=== PATIENT | male | born 1935 | race Caucasian/White ===

== ENCOUNTER 2019-07-09 10:22 | Inpatient (IN) | payer MEDICARE, OTHER, SELFPAY ==
[2019-06-26 10:00] VITALS: BMI 25.8
[2019-07-09] VITALS (12 sets, daily range): BP systolic 88–161; BP diastolic 53–83; PULSE 53–80; RESP 12–20; TEMP 36.2–36.6; O2SAT 92–99; BMI 25.8
--- NOTE | 2019-07-09 | DI.RAD.S_ITS ---
PROCEDURE: XR LUMBAR SPINE 2-3V INDICATIONS: L5-S1 TLIF TECHNIQUE: 2 views of the lumbar spine were acquired. COMPARISON: None. FINDINGS: Bones: Intraoperative images are demonstrate postsurgical changes compatible with L5-S1 TLIF. Orthopedic hardware is intact. There is normal alignment of the fused vertebral bodies. Soft tissues: Overlying bowel gas pattern is normal. No suspicious soft tissue calcifications. IMPRESSION: Expected postsurgical change for L5-S1 TLIF. Dictated by: Lubna Schmidt MD, PhD on 07/09/2019 at 15:06 Approved by: Lubna Schmidt MD, PhD on 07/09/2019 at 15:07
[2019-07-09] MEDS: LACTATED RINGERS 1,000 ML 42 ML IV (11:30)
--- NOTE | 2019-07-09 12:03 | PM.PREOP ---
Pre-operative Note Interval Note History & Physical reviewed/Exam performed by Physician: Yes Changes to H&P: No
[2019-07-09] MEDS: CEFAZOLIN 2 GM/100 ML FROZ.PIGGY IV (12:50)
--- NOTE | 2019-07-09 13:23 | SUR.OPER ---
Prone on spine table, head in foam head support, padded chest and pelvic supports, gel pad at knees, lower legs supported by pillows; nipples, genitalia and toes free of pressure, arms secured on foam padded arm boards at <90 degrees abduction. Tape over blanket at thigh secured to table.
[2019-07-09] MEDS: BUPIVACAINE 0.25% W/ EPI 30 ML VIAL INJ (13:29)
[2019-07-09] MEDS: BUPIVACAINE LIPOSOME 266 MG/20 ML VIAL INJ (13:29)
[2019-07-09] MEDS: ACETAMINOPHEN IV 1,000 MG/100 ML VIAL 400 MG IV (15:00)
--- NOTE | 2019-07-09 15:14 | P.OP_ITS ---
Operative Date/Time/Diagnoses Date of procedure: 07/09/19 Time of procedure: 12:14 Pre-op diagnosis: 1. L5-S1 spinal stenosis 2. L5-S1 spondylosis with radiculopathy Post-op diagnosis: same Procedure & Clinicians Procedure: 1. L5-S1 Postero-lateral and posterior interbody fusion 2. L5-S1 interbody cage placement. 3. L5-S1 decompressive laminectomy with bilateral facetecomies 4. L5-S1 Posterior non-segmental instrumentation 5. [place] of bone marrow from iliac crest 6. Utilization of microsurgical technique and operating microscope Same procedure as scheduled: Yes Indications: Patient has been having chronic back pain and worsening lumbar radiculopathy. Patient failed multiple conservative management with worsening pain weakness and numbness in her lower extremity. Patient has been having difficulty performing activity of daily living. After discussing risks benefits of treatment options, patient elected proceed with surgery. Surgeon: Lydia Blair Flow Specialist: Ratna Andrade'Brien Click Yes if Unassisted: No Anesthesia Type: General Operative Notes Closure Type: primary Specimen(s): none sent Prosthetic devices, grafts, tissues, transplants, or devices: Globus revolve screws, Rise cage Estimated Blood Loss (mL): 50 Blood products transfused: none Procedure in detail: Patient was seen in the preoperative area. Risks and benefits of the surgery was discussed with the patient. Informed consent was obtained from the patient and placed in the chart. Surgical site was marked. Patient was taken to the operative room. General anesthesia was administered. Prophylactic antibiotic was given to the patient less than 30 min before the incision was made. Patient was placed into a prone position on the Bon table. Patient's back was then prepped and draped in the sterile fashion. Time- out was performed at this time. Using AP and lateral C-arm imaging the interval between L5-S1 was identified and marked on patient's back. A 2 inch incision 2 in from midline was made on the right side first. The fascia was incised in line with skin incision. Globus MARS retractors was placed inside the incision and docked onto the L5 lamina. Using microsurgical technique and operating microscope, a L5-S1 laminectomy and L5-S1 facetectomy was performed using a Kerrison rongeur. The disc space at L5- S1 was identified. And a total diskectomy was performed at L5-S1 level. The endplates were decorticated using a rasp and shaver. The total diskectomy and decortication was performed at L5-S1 level in order to to accomplish a L5-S1 fusion. The local bone from the laminectomy and facetectomy was saved for local bone grafting. After the total diskectomy and decortication was completed, Bio4 bone graft material was combined with local bone that was harvested earlier. At this time, a separate skin is incision was made over the iliac crest. A Jamshidi needle was inserted into the iliac crest through a separate skin incision. 5 cc of bone marrow aspiration was obtained through the separate skin incision using a Jamshidi needle from the iliac crest. The bone marrow aspiration was combined with local bone and the Bio4 bone grafting material. The bone grafting material was placed into the L5-S1 interbody space along with a expandable cage. The cage was expanded to its maximum height using the torque limiting screwdriver. At this time a mirror image incision was made on the left side. The fascia was incised in line with the skin incision. Globus MARS retractor was inserted and docked onto the L5-S1 posterolateral gutter. Using the power drill, posterior- lateral decortication was performed at L5-S1 level until bleeding cortical bone was identified. The remaining bone grafting material was placed into the L5-S1 posterior lateral gutter he order to accomplish posterolateral fusion at the L5- S1 level. Using the double C-arm technique, pedicle screws were placed into the L5-S1 pedicles bilaterally. This was done by placing the Jamshidi needle into the pedicles, then placing the guidewires over the Jamshidi needle, and finally placing the cannulated screws over the guidewires bilaterally. After the pedicle screws were placed, 2 titanium rods was locked into the heads of the pedicle screws using locking caps and torque limiting screwdriver. After all the hardware was placed, and confirmed with AP and lateral C-arm imaging, the wound was then irrigated with sterile normal saline and packed with Ray-Lisa gauze for 3 min to accomplish hemostasis. After the gauze was removed the deep fascia was closed with #1 Vicryl suture. The subcutaneous layer was closed with 2-0 Vicryl. The skin was closed with skin maxx. Patient tolerated the procedure well. There were no complications. Complications: none Post-operative Condition: stable Disposition: PACU Plan for aftercare: Admit to inpatient hospital
[2019-07-09] MEDS: hydrOXYzine 50 MG/ML INJ 25 MG IM (15:44)
--- NOTE | 2019-07-09 16:19 | SUR.PHASEI ---
Report given to micaela. pt states he is tolerating his pain at a level of 3-4. pt 's blood pressure and vital signs were stable. pt 's dressing also dry and intact.
[2019-07-09] MEDS: SODIUM CHLORIDE 0.9% 1,000 ML 100 ML IV (18:17)
--- NOTE | 2019-07-09 19:18 | PC.NURSE ---
Pt resting well rob this time. Lungs clear, SpO2 95% RA Dsg
--- NOTE | 2019-07-09 19:20 | PC.NURSE ---
Addendum entered by Lucy Guy R.N. 07/09/19 21:33: Pt resting at intervals this evening. Denies discomfort when asked. Dsg to back CDI IV continues as per orders. Stable post op course. Call light w/in reach, bed alarm on for pt safety. Continue w/plan of care. Original Note: Pt resting quietly at this time. Lungs clear, SpO2 95% 2L Dsg to surgical back CDI IV NS @ 100cc/hr infusing into the RFA via pump w/o incidence. Foot SCD in place. Call light w/in reach, bed alrm on for pt safety.
[2019-07-09] MEDS: PANTOPRAZOLE 20 MG TABLET PO (20:48)
[2019-07-09] MEDS: CEFAZOLIN 1 GM/50 ML FROZ.PIGGY IV (20:48)
[2019-07-09] MEDS: DOCUSATE 100 MG CAPSULE PO (20:48)
[2019-07-09] MEDS: ATENOLOL 25 MG TABLET PO (20:48)
[2019-07-09] MEDS: SENNOSIDES 8.6 MG TABLET 17.2 MG PO (20:48)
[2019-07-09] MEDS: FELODIPINE ER 2.5 MG TAB PO (20:54)
[2019-07-09] MEDS: TERAZOSIN 5 MG CAPSULE PO (20:54)
[2019-07-09] MEDS: HYDROCODONE/ACET 5/325 TABLET 2 TAB PO (22:03)
[2019-07-09] MEDS: HYDROMORPHONE 0.5 MG INJ IV (23:55)
[2019-07-09] MEDS: hydrOXYzine pamoate 25 MG CAPSULE PO (23:55)
[2019-07-10] VITALS (10 sets, daily range): BP systolic 98–145; BP diastolic 56–83; PULSE 62–91; RESP 13–16; TEMP 36.9–37.9; O2SAT 86–94
[2019-07-10] MEDS: HYDROCODONE/ACET 5/325 TABLET 2 TAB PO ×3 (02:23→09:55)
--- NOTE | 2019-07-10 04:25 | PC.NURSE ---
Addendum entered by Yumi Ferguson R.N. 07/10/19 05:26: Pt CMS is intact Original Note: Pt VSS, lung sounds clear. Pt in 6/10 pain at start of shift. Pt had to be medicated w/ 0.5mg dilaudid, and Q4 [place]. Pt's pain is more under control at 4/10. Pt had no urine output on evening shift and bladder scan was done on this shift >400. No orders were in the computer from Dr. Blair, for a bladder scan or straight cath as needed. 0230 called information resources director Dr. Azar, verbal order put in the computer for bladder scan as needed and straight cath. Pt had 500cc of urine output. Pt has lumbar dressing, clean/dry and intact with some shadow drainage. Pt has SCD's applied, IS encouraged, and call light is within reach.
[2019-07-10] MEDS: CEFAZOLIN 1 GM/50 ML FROZ.PIGGY IV (04:51)
[2019-07-10 06:12] LABS: Hematocrit 33.7 % (41-53)
--- NOTE | 2019-07-10 07:32 | PM.PNPO.1 ---
Subjective Subjective Date Patient Seen: 07/10/19 Time Patient Seen: 07:32 Interval history: Post op day 1 s/p L5-S1 TLIF with Dr. Blair. Overnight patient was bladder scanned and straight cath Exam Vital Signs (past 8 hours): - 07/10/19 00:20 07/10/19 06:28 Temperature 98.6 F 98.4 F Pulse Rate 62 69 Respiratory Rate 15 16 Blood Pressure 116/70 120/65 Pulse Oximetry 93 94 Oxygen Delivery Method Nasal Cannula Oxygen Flow Rate 2 Objective Labs Result Diagrams: 07/10/19 05:45 Labs: Laboratory Results - last 24 hr 07/10/19 05:45 Hgb 11.0 L Hct 33.7 L Assessment & Plan Post-op Postoperative Procedures: Procedures Operation Date: 07/09/19 12:15 Actual Procedures Side Surgeon p L5-S1 TLIF Not Applicable Lydia Blair MD Quality VTE Deep Vein Thrombosis/Pulmonary Embolism Present on Admission: No
--- NOTE | 2019-07-10 07:33 | PM.PNPO.1 ---
Subjective Subjective Date Patient Seen: 07/10/19 Time Patient Seen: 07:33 Interval history: Post op day 1 s/p TLIF with Dr. Blair. Overnight patient was bladder scanned (>400 ml) and straight cath (500ml). Patient denies voiding since. Patient complains of pain in lower back (5/10, non radiating). Taking dilaudid and norco for pain. Vistaril for muscle spasms. Patient hasn't ambulated. Patient denies fever, chill, nausea, vomiting, chest pain, shortness of breath, calf pain. Exam Vital Signs (past 8 hours): - 07/10/19 00:20 07/10/19 06:28 Temperature 98.6 F 98.4 F Pulse Rate 62 69 Respiratory Rate 15 16 Blood Pressure 116/70 120/65 Pulse Oximetry 93 94 Oxygen Delivery Method Nasal Cannula Oxygen Flow Rate 2 Narrative Exam Narrative: 83 year old male laying comfortably in bed, in no apparent distress. A&Ox3. SCDs in place. Dressing intact and in place with minor shadow drainage. Patient able to actively dorsiflex/plantar flex. Sensation to light touch grossly intact in lower extremities bilaterally. Dorsalis pedis 2+ b/l. Capillary refill <2 seconds bilaterally LE. Objective Labs Result Diagrams: 07/10/19 05:45 Labs: Laboratory Results - last 24 hr 07/10/19 05:45 Hgb 11.0 L Hct 33.7 L Assessment & Plan Post-op Postoperative Procedures: Procedures Operation Date: 07/09/19 12:15 Actual Procedures Side Surgeon p L5-S1 TLIF Not Applicable Lydia Blair MD Postoperative status: doing well Postoperative plan narrative: Continue current pain management, educated patient on keeping pain 5/10 or below. Ambulate with physical therapy today Monitor voiding Discharge likely tomorrow pending voiding and physical therapy clearance. Time Spent With Patient Time with patient: less than 15 minutes Quality VTE Deep Vein Thrombosis/Pulmonary Embolism Present on Admission: No
[2019-07-10] MEDS: hydrOXYzine pamoate 25 MG CAPSULE PO (08:05)
[2019-07-10] MEDS: ATORVASTATIN 10 MG TABLET PO (08:39)
[2019-07-10] MEDS: CHOLECALCIFEROL (VITAMIN D3) 1,000 UNIT TABLET 2000 UNIT PO (08:39)
[2019-07-10] MEDS: TERAZOSIN 5 MG CAPSULE PO ×3 (08:39→22:09)
[2019-07-10] MEDS: FLUoxetine 20 MG CAPSULE PO (08:39)
[2019-07-10] MEDS: ACETAMINOPHEN 325 MG TABLET 650 MG PO ×2 (08:40→19:05)
[2019-07-10] MEDS: PANTOPRAZOLE 20 MG TABLET PO ×2 (08:40→22:07)
[2019-07-10] MEDS: DOCUSATE 100 MG CAPSULE PO ×2 (08:40→22:07)
--- NOTE | 2019-07-10 09:30 | PT.IIE ---
Current Diagnoses Other spondylosis with radiculopathy, lumbosacral region (07/09/19) Spinal stenosis, lumbar region without neurogenic claudication (07/09/19) Other specified postprocedural states (07/09/19) Surgery Performed Operation Date: 07/09/19 12:15 Actual Procedures p L5-S1 TLIF(Not Applicable) - Lydia Blair MD Surgical History (Last Updated 06/26/19 @ 10:49 by Priyanka Chinchilla RN) H/O vasectomy (Acute) History of Nancie fundoplication (Acute ~1999) Hx of appendectomy (Acute ~1999) Hx of arthroscopy of left knee (Acute) Hx of blepharoplasty (Acute) Hx of fusion of cervical spine (Acute 07/27/17) Hx of hemorrhoidectomy (Acute ~1965) Hx of laminectomy (Acute 04/25/17) Hx of repair of right rotator cuff (Acute ~2003) S/P epidural steroid injection (Acute) Medical History (Last Updated 06/26/19 @ 10:49 by Priyanka Chinchilla RN) Arthritis (Acute) Mendoza's esophagus (Acute) BPH (benign prostatic hyperplasia) (Acute) CKD (chronic kidney disease), stage III (Acute) Color blind (Acute) DDD (degenerative disc disease) (Acute) Depression (Acute) Former smoker (Acute) GERD (gastroesophageal reflux disease) (Acute) Hemorrhoids (Acute) Herpes zoster (Acute) HLD (hyperlipidemia) (Acute) HTN (hypertension) (Acute) Hyperglycemia (Acute) Incomplete bladder emptying (Acute) Low back pain (Acute) 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 (Acute) Osteoarthritis (Acute) Spina bifida (Acute) TIA (transient ischemic attack) (Acute) [place] macroglobulinemia (Acute 05/24/19) Weakness of right lower extremity (Acute) Physical Therapy Inpatient Evaluation/Re-Eval M1 PT/OT-IP Prior Functional Status Start: 07/10/19 12:04 Freq: NEEDED Status: Active Protocol: Document 07/10/19 09:30 AB (Rec: 07/10/19 12:17 AB [id number]) Medical Review Prior Functional Status Medical History Reviewed Yes Communication able to make needs known Mobility and Gait pt stated that he is independent with all mobilities and ambulation without AD Social History Household Members spouse Living Arrangements House Number of Floors (Floors) One Floor Number of Stairs To Enter/Railing? 4 steps to enter with R rail ascending Home Environment Standard Height Toilet,Walk in Shower Home Equipment Front Wheel Walker,Grab Bars Near Toilet,Grab Bars In Shower Employment Status Retired M2 PT-IP Current Condition Start: 07/10/19 12:04 Freq: NEEDED Status: Active Protocol: Document 07/10/19 09:30 AB (Rec: 07/10/19 12:17 AB [id number]) Physical Therapy Current Condition Current Condition Evaluation Date 07/10/19 Treatment Diagnosis s/p L5S1 fusion/lami; difficulty in walking Onset Date 07/09/19 Precautions Lumbar Precautions Log Roll,No Twisting,Limit Bending,Lifting Restriction of 10 lbs,Gait Belt above Incisional Area Other Precautions Falls M3 PT-IP Subjective Start: 07/10/19 12:04 Freq: NEEDED Status: Active Protocol: Document 07/10/19 09:30 AB (Rec: 07/10/19 12:17 AB [id number]) Subjective Physical Therapy Visit Type Type Initial Evaluation Visit Start Time 09:30 Visit Stop Time 10:09 Total Visit Minutes 39 Number of [employer] MANAGER Visits 0 Physical Therapy Visit Comments Patient Comments pt agreeable to do PT Patient Goals to go home Therapy Pain Assessment Pain When Pain Assessed At Rest Pain Present Pain Present Pain Reported Location Back Intensity 6 Scale Used Numeric (1 - 10) Pain Management Techniques Apply Cold,Re-positioning, Timing of Activity with Medications M4 PT-IP Mobility and Gait Start: 07/10/19 12:04 Freq: NEEDED Status: Active Protocol: Document 07/10/19 09:30 AB (Rec: 07/10/19 12:17 AB [id number]) PT-Bed Mobility Assessment Rolling Type of Rolling Log Rolling Level of Assist Standby Assistance Supine to Sit Supine to Sit Standby Assistance Sit to Supine Sit to Supine Standby Assistance PT-Transfer Assessment Sit to and From Stand Sit to and from Stand Minimal Assistance,Moderate Assistance,1 Person Assistance ,Use of Upper Extremities Equipment Transfer Assistive Device Gait Belt,Front Wheeled Walker Orthotic/Prosthetic Devices or Brace: No Transfers Transfer Destination Chair Transfer Technique pt ambulated using FWW Transfer Ability Level of Assist Minimal Assistance,1 Person Assistance,Use of Upper Extremities Comments Mobility Comments attempted to use the toilet. pt ambulated from the bed to the toilet using FWW min A and cues. pt was able to maintain standing using FWW for support CGA. pt ambulated more after using the toilet. agreed to sit up on chair. positioned on the chair. call light and table placed within reach. Gait Assessment Gait Gait Assistance Required: Minimum Assistance Distance (Feet) 30 Able to Maintain Weight Bearing Status Yes During Gait Assistive Devices Assistive Device Gait Belt,Front Wheeled Walker Orthotic/Prosthetic Devices or Brace: No Gait Deviations General Gait Pattern Antalgic,Decreased Stride Length,Decreased Feet Clearance Factors Limiting Gait Function Factors Limiting Gait Function Decreased Activity Tolerance, Decreased Strength,Difficulty Following Directions,Limited Range of Motion,Pain,Poor Balance,Poor Safety Awareness, Respiratory Distress PT-Balance Assessment Sitting Balance and Reactions Static Sitting Balance Ability Good Dynamic Sitting Balance Ability Good Standing Balance and Reactions Static Standing Balance Ability Fair Dynamic Standing Balance Ability Fair Device Used FWW M5 PT-IP Objective Assessments Start: 07/10/19 12:04 Freq: NEEDED Status: Active Protocol: Document 07/10/19 09:30 AB (Rec: 07/10/19 12:17 [id number]) Orientation Orientation/Cognition Level of Alertness Alert Orientation Name,Age,Birthday,Place, Situation Gross Range of Motion Lower Extremity ROM Assessment Within Functional Limits Strength Lower Extremity Strength Assessment Left Impaired Comments Strength Comments LLE : 3+/5 Coordination Assessment Gross Coordination Gross Coordination WNL Sensation Assessment Sensation Gross Sensation WNL Muscle Tone Muscle Tone WNL Yes M6 PT-IP Treatment Start: 07/10/19 12:04 Freq: NEEDED Status: Active Protocol: Document 07/10/19 09:30 AB (Rec: 07/10/19 12:17 [id number]) Physical Therapy Treatment Education Education Provided Precautions,Weight Bearing Status,Post-Op Packet,Safety M7 PT-IP Assessment and Plan Start: 07/10/19 12:04 Freq: NEEDED Status: Active Protocol: Document 07/10/19 09:30 AB (Rec: 07/10/19 12:17 [id number]) PT Summary Assessment and Plan Potential Rehabilitation Potential Good Summary Impairments Pain,ROM,Strength,Balance,Bed Mobility,Transfers,Gait, Activity Tolerance Assessment Summary pt requiring min to mod with sit to stand and min A with ambulation using FWW, but will likely progress during hospital stay. pt plans to go home with spouse to assist him. caregiver training will be conducted when appropriate as well as stair climbing training. Goals Bed Mobility Goal Independent Transfer Goal Independent,Front Wheeled Walker Gait Goal Independent,Front Wheel Walker Gait Distance 200 Other Goals up/down 4 steps with R rail SBA Days to Meet Goals 5 Frequency of Treatment Frequency Of Treatment Twice a Day Treatment Plan Physical Therapy Treatment Plan Bed Mobility Training,Transfer Training,Gait Training, Therapeutic Exercise,Balance Retraining,Post Op Education, Discharge Planning,Hot or Cold Pack,Neuromuscular Re-ed, Coordination Retraining,Manual Therapy Other Recommendations and Next Treatment bed mobility, transfers, Focus ambulation, stair climbing Recommendations To Nursing Amount of Assist Needed 1 Person Assist Discharge Recommendations PT Discharge Recommendations Home with Assistance
--- NOTE | 2019-07-10 09:30 | PT.IIE ---
Current Diagnoses Other spondylosis with radiculopathy, lumbosacral region (07/09/19) Spinal stenosis, lumbar region without neurogenic claudication (07/09/19) Other specified postprocedural states (07/09/19) Surgery Performed Operation Date: 07/09/19 12:15 Actual Procedures p L5-S1 TLIF(Not Applicable) - Lydia Blair MD Surgical History (Last Updated 06/26/19 @ 10:49 by Priyanka Chinchilla RN) H/O vasectomy (Acute) History of Nancie fundoplication (Acute ~1999) Hx of appendectomy (Acute ~1999) Hx of arthroscopy of left knee (Acute) Hx of blepharoplasty (Acute) Hx of fusion of cervical spine (Acute 07/27/17) Hx of hemorrhoidectomy (Acute ~1965) Hx of laminectomy (Acute 04/25/17) Hx of repair of right rotator cuff (Acute ~2003) S/P epidural steroid injection (Acute) Medical History (Last Updated 06/26/19 @ 10:49 by Priyanka Chinchilla RN) Arthritis (Acute) Mendoza's esophagus (Acute) BPH (benign prostatic hyperplasia) (Acute) CKD (chronic kidney disease), stage III (Acute) Color blind (Acute) DDD (degenerative disc disease) (Acute) Depression (Acute) Former smoker (Acute) GERD (gastroesophageal reflux disease) (Acute) Hemorrhoids (Acute) Herpes zoster (Acute) HLD (hyperlipidemia) (Acute) HTN (hypertension) (Acute) Hyperglycemia (Acute) Incomplete bladder emptying (Acute) Low back pain (Acute) 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 (Acute) Osteoarthritis (Acute) Spina bifida (Acute) TIA (transient ischemic attack) (Acute) Waldenstrom macroglobulinemia (Acute 05/24/19) Weakness of right lower extremity (Acute) Physical Therapy Inpatient Evaluation/Re-Eval M1 PT/OT-IP Prior Functional Status Start: 07/10/19 12:04 Freq: NEEDED Status: Active Protocol: Document 07/10/19 09:30 AB (Rec: 07/10/19 12:17 AB [id number]) Medical Review Prior Functional Status Medical History Reviewed Yes Communication able to make needs known Mobility and Gait pt stated that he is independent with all mobilities and ambulation without AD Social History Household Members spouse Living Arrangements House Number of Floors (Floors) One Floor Number of Stairs To Enter/Railing? 4 steps to enter with R rail ascending Home Environment Standard Height Toilet,Walk in Shower Home Equipment Front Wheel Walker,Grab Bars Near Toilet,Grab Bars In Shower Employment Status Retired M2 PT-IP Current Condition Start: 07/10/19 12:04 Freq: NEEDED Status: Active Protocol: Document 07/10/19 09:30 AB (Rec: 07/10/19 12:17 AB [id number]) Physical Therapy Current Condition Current Condition Evaluation Date 07/10/19 Treatment Diagnosis s/p L5S1 fusion/lami; difficulty in walking Onset Date 07/09/19 Precautions Lumbar Precautions Log Roll,No Twisting,Limit Bending,Lifting Restriction of 10 lbs,Gait Belt above Incisional Area Other Precautions Falls M3 PT-IP Subjective Start: 07/10/19 12:04 Freq: NEEDED Status: Active Protocol: Document 07/10/19 09:30 AB (Rec: 07/10/19 12:17 AB [id number]) Subjective Physical Therapy Visit Type Type Initial Evaluation Visit Start Time 09:30 Visit Stop Time 10:09 Total Visit Minutes 39 Number of MARKETING COMPLIANCE MANAGER Visits 0 Physical Therapy Visit Comments Patient Comments pt agreeable to do PT Patient Goals to go home Therapy Pain Assessment Pain When Pain Assessed At Rest Pain Present Pain Present Pain Reported Location Back Intensity 6 Scale Used Numeric (1 - 10) Pain Management Techniques Apply Cold,Re-positioning, Timing of Activity with Medications M4 PT-IP Mobility and Gait Start: 07/10/19 12:04 Freq: NEEDED Status: Active Protocol: Document 07/10/19 09:30 AB (Rec: 07/10/19 12:17 AB [id number]) PT-Bed Mobility Assessment Rolling Type of Rolling Log Rolling Level of Assist Standby Assistance Supine to Sit Supine to Sit Standby Assistance Sit to Supine Sit to Supine Standby Assistance PT-Transfer Assessment Sit to and From Stand Sit to and from Stand Minimal Assistance,Moderate Assistance,1 Person Assistance ,Use of Upper Extremities Equipment Transfer Assistive Device Gait Belt,Front Wheeled Walker Orthotic/Prosthetic Devices or Brace: No Transfers Transfer Destination Chair Transfer Technique pt ambulated using FWW Transfer Ability Level of Assist Minimal Assistance,1 Person Assistance,Use of Upper Extremities Comments Mobility Comments attempted to use the toilet. pt ambulated from the bed to the toilet using FWW min A and cues. pt was able to maintain standing using FWW for support CGA. pt ambulated more after using the toilet. agreed to sit up on chair. positioned on the chair. call light and table placed within reach. Gait Assessment Gait Gait Assistance Required: Minimum Assistance Distance (Feet) 30 Able to Maintain Weight Bearing Status Yes During Gait Assistive Devices Assistive Device Gait Belt,Front Wheeled Walker Orthotic/Prosthetic Devices or Brace: No Gait Deviations General Gait Pattern Antalgic,Decreased Stride Length,Decreased Feet Clearance Factors Limiting Gait Function Factors Limiting Gait Function Decreased Activity Tolerance, Decreased Strength,Difficulty Following Directions,Limited Range of Motion,Pain,Poor Balance,Poor Safety Awareness, Respiratory Distress PT-Balance Assessment Sitting Balance and Reactions Static Sitting Balance Ability Good Dynamic Sitting Balance Ability Good Standing Balance and Reactions Static Standing Balance Ability Fair Dynamic Standing Balance Ability Fair Device Used FWW M5 PT-IP Objective Assessments Start: 07/10/19 12:04 Freq: NEEDED Status: Active Protocol: Document 07/10/19 09:30 AB (Rec: 07/10/19 12:17 [id number]) Orientation Orientation/Cognition Level of Alertness Alert Orientation Name,Age,Birthday,Place, Situation Gross Range of Motion Lower Extremity ROM Assessment Within Functional Limits Strength Lower Extremity Strength Assessment Left Impaired Comments Strength Comments LLE : 3+/5 Coordination Assessment Gross Coordination Gross Coordination WNL Sensation Assessment Sensation Gross Sensation WNL Muscle Tone Muscle Tone WNL Yes M6 PT-IP Treatment Start: 07/10/19 12:04 Freq: NEEDED Status: Active Protocol: Document 07/10/19 09:30 AB (Rec: 07/10/19 12:17 [id number]) Physical Therapy Treatment Education Education Provided Precautions,Weight Bearing Status,Post-Op Packet,Safety M7 PT-IP Assessment and Plan Start: 07/10/19 12:04 Freq: NEEDED Status: Active Protocol: Document 07/10/19 09:30 AB (Rec: 07/10/19 12:17 [id number]) PT Summary Assessment and Plan Potential Rehabilitation Potential Good Summary Impairments Pain,ROM,Strength,Balance,Bed Mobility,Transfers,Gait, Activity Tolerance Assessment Summary pt requiring min to mod with sit to stand and min A with ambulation using FWW, but will likely progress during hospital stay. pt plans to go home with spouse to assist him. caregiver training will be conducted when appropriate as well as stair climbing training. Goals Bed Mobility Goal Independent Transfer Goal Independent,Front Wheeled Walker Gait Goal Independent,Front Wheel Walker Gait Distance 200 Other Goals up/down 4 steps with bilateral rails SBA Days to Meet Goals 5 Frequency of Treatment Frequency Of Treatment Twice a Day Treatment Plan Physical Therapy Treatment Plan Bed Mobility Training,Transfer Training,Gait Training, Therapeutic Exercise,Balance Retraining,Post Op Education, Discharge Planning,Hot or Cold Pack,Neuromuscular Re-ed, Coordination Retraining,Manual Therapy Other Recommendations and Next Treatment bed mobility, transfers, Focus ambulation, stair climbing Recommendations To Nursing Amount of Assist Needed 1 Person Assist Discharge Recommendations PT Discharge Recommendations Home with Assistance
[2019-07-10] MEDS: HYDROMORPHONE 2 MG TABLET PO ×2 (13:55→19:05)
[2019-07-10] MEDS: DEXAMETHASONE 10 MG/ML VIAL IV (13:56)
--- NOTE | 2019-07-10 14:54 | PT.IPTN ---
Current Diagnoses Other spondylosis with radiculopathy, lumbosacral region (07/09/19) Spinal stenosis, lumbar region without neurogenic claudication (07/09/19) Other specified postprocedural states (07/09/19) Surgery Performed Operation Date: 07/09/19 12:15 Actual Procedures p L5-S1 TLIF(Not Applicable) - Lydia Blair MD Physical Therapy Treatment Note M2 PT-IP Current Condition Start: 07/10/19 12:04 Freq: NEEDED Status: Active Protocol: Document 07/10/19 09:30 AB (Rec: 07/10/19 12:17 AB [id number]) Physical Therapy Current Condition Current Condition Evaluation Date 07/10/19 Treatment Diagnosis s/p L5S1 fusion/lami; difficulty in walking Onset Date 07/09/19 Precautions Lumbar Precautions Log Roll,No Twisting,Limit Bending,Lifting Restriction of 10 lbs,Gait Belt above Incisional Area Other Precautions Falls M3 PT-IP Subjective Start: 07/10/19 12:04 Freq: NEEDED Status: Active Protocol: Document 07/10/19 14:54 AB (Rec: 07/10/19 17:46 AB [id number]) Subjective Physical Therapy Visit Type Type Treatment Note Visit Start Time 14:54 Visit Stop Time 15:20 Total Visit Minutes 26 Number of VASCULAR ULTRASOUND TECHNOLOGIST Visits 0 Physical Therapy Visit Comments Patient Comments pt agreeable to do PT Therapy Pain Assessment Pain When Pain Assessed At Rest Pain Present Pain Present Pain Reported Location Back Intensity 3 Scale Used Numeric (1 - 10) Pain Management Techniques Re-positioning,Timing of Activity with Medications M4 PT-IP Mobility and Gait Start: 07/10/19 12:04 Freq: NEEDED Status: Active Protocol: Document 07/10/19 14:54 AB (Rec: 07/10/19 17:46 AB [id number]) PT-Bed Mobility Assessment Rolling Type of Rolling Log Rolling Level of Assist Standby Assistance Supine to Sit Supine to Sit Standby Assistance PT-Transfer Assessment Sit to and From Stand Sit to and from Stand Contact Guard Assistance, Minimal Assistance,1 Person Assistance,Use of Upper Extremities Equipment Transfer Assistive Device Gait Belt,Front Wheeled Walker Orthotic/Prosthetic Devices or Brace: No Transfers Transfer Destination Chair Transfer Technique Stand Step Pivot Transfer Ability Level of Assist Contact Guard Assistance, Minimal Assistance,1 Person Assistance,Use of Upper Extremities Comments Mobility Comments pt completed supine to sit SBA and cues. ambulated in room x 2 reps. pt at first wanted to go back to bed but OT came in and agreed to sit up on chair. completed stand step transfer using FWW CGA to min A and cues. OT took over Gait Assessment Gait Gait Assistance Required: Contact Guard Assist,Minimum Assistance Distance (Feet) 35 Able to Maintain Weight Bearing Status Yes During Gait Assistive Devices Assistive Device Gait Belt,Front Wheeled Walker Gait Deviations General Gait Pattern Antalgic,Decreased Stride Length,Decreased Feet Clearance Factors Limiting Gait Function Factors Limiting Gait Function Decreased Activity Tolerance, Decreased Strength,Limited Range of Motion,Pain,Poor Balance,Poor Safety Awareness, Respiratory Distress Comments Gait Comments pt ambulated in room ~ 35 ft CGA to min A using FWW. pt with slight L knee bent during weight bearing and has increase UE weight bearing through FWW. O2 sat checked after walking and is at 74-77% . pt's fingers are cold. got portable pulse ox and reading at 77%. informed nurse and nurse provided O2 for pt. O2 sat increased to 90%. pt without any symptoms/SOB. O2 sat increased to 93% after a few minutes of rest. pt agreed to walk again and completed ~ 35 ft CGA to min A using FWW. M5 PT-IP Objective Assessments Start: 07/10/19 12:04 Freq: NEEDED Status: Active Protocol: Document 07/10/19 09:30 AB (Rec: 07/10/19 12:17 AB [id number]) Orientation Orientation/Cognition Level of Alertness Alert Orientation Name,Age,Birthday,Place, Situation Gross Range of Motion Lower Extremity ROM Assessment Within Functional Limits Strength Lower Extremity Strength Assessment Left Impaired Comments Strength Comments LLE : 3+/5 Coordination Assessment Gross Coordination Gross Coordination WNL Sensation Assessment Sensation Gross Sensation WNL Muscle Tone Muscle Tone WNL Yes M6 PT-IP Treatment Start: 07/10/19 12:04 Freq: NEEDED Status: Active Protocol: Document 07/10/19 14:54 AB (Rec: 07/10/19 17:46 AB [id number]) Physical Therapy Treatment Education Education Provided Precautions,Safety M7 PT-IP Assessment and Plan Start: 07/10/19 12:04 Freq: NEEDED Status: Active Protocol: Document 07/10/19 14:54 AB (Rec: 07/10/19 17:46 AB [id number]) PT Summary Assessment and Plan Potential Rehabilitation Potential Good Summary Impairments Pain,ROM,Strength,Balance, Cognition,Bed Mobility, Transfers,Gait,Activity Tolerance Progress Towards Goals Slow Progress due to Pain,Slow Progress due to Activity Tolerance Assessment Summary pt requiring min A with mobility and requires cues for techniques and safety. pt plans to go home and spouse to assist him. d/c plan depending if spouse will be able to assist pt and also if pt will be able to complete stair climbing safety as pt has 4 steps to enter the house with 1 rail. will continue to monitor progress. will conduct caregiver training when appropriate. Goals Bed Mobility Goal Independent Transfer Goal Independent,Front Wheeled Walker Gait Goal Independent,Front Wheel Walker Gait Distance 200 Other Goals up/down 4 steps with R rail SBA Days to Meet Goals 5 Frequency of Treatment Frequency Of Treatment Twice a Day Treatment Plan Physical Therapy Treatment Plan Bed Mobility Training,Transfer Training,Gait Training, Therapeutic Exercise,Balance Retraining,Post Op Education, Discharge Planning,Hot or Cold Pack,Neuromuscular Re-ed, Coordination Retraining,Manual Therapy Other Recommendations and Next Treatment bed mobility, transfers, Focus ambulation, stair climbing Recommendations To Nursing Amount of Assist Needed 1 Person Assist Discharge Recommendations PT Discharge Recommendations Home with Assistance
--- NOTE | 2019-07-10 15:06 | CM.DANOTE ---
DCP/Assessment: Reviewed chart. Patient is a 83yr old male admitted [facility] surgery performed on 07-09-19 raman Blair. PCP listed is Dr. Hart. [facility] is 1)Medicare [facility] Met with patient this AM explained CM/SW role. Patient alert and oriented at time of visit. Patient plans to d/c home when medically stable. Therapy evaluation pending. Notified patient that CM team would continue to follow if needs were to arise. P: Anticipate home when medically stable. CM team to follow up after therapy if needed. DARLING Polanco Discharge Planning/Care Management Advanced directive, confirm from FAMILY Start: 07/09/19 18:32 Freq: Q24H Status: Active Protocol: Document 07/09/19 18:32 KMD (Rec: 07/09/19 18:48 KMD [id number]) Advance Directive, confirm on record Time 18:48 Person contacted Patient Copy received No CM Discharge Assessment Start: 07/10/19 14:49 Freq: Status: Active Protocol: Document 07/10/19 14:55 KJS (Rec: 07/10/19 15:06 KJS [id number]) Discharge Planning Assessment Assigned Sock Liner DARLING Polanco Contact Information Gaby Barrett (spouse) [phone] Advance Directives? Yes Advance Directives on File No History Provided By Patient,Medical Record Prior Living Arrangements House Household Members spouse Type of transporation used prior to Drives own vehicle admit Independent with ADL's Yes Is patient alert and oriented? Yes Caregiver for Another No DME Already Rented / Owned FWW / Walker Barriers to Discharge No Comment Patient is POD#1 anticipates going home when medically stable. Therapy evaluations pending. Discharge Plan Home Transportation Arrangement Family to provide transport Whiteboard Updated in Patient Room with Yes name and ext. # of Sock Liner Review Status In Process Next Review Type Continued Stay Review Pre-Anesthesia Assessment Start: 06/26/19 09:59 Freq: Status: Active Protocol: Document 06/26/19 10:00 CAB (Rec: 06/26/19 10:59 CAB [id number]) Pre-Anesthesia Assessment Diagnostic Results BMP/CMP,CBC,EKG,Urinalysis Comment Outside labs/EKG Primary Care Provider Emely Hart Medical Clearance Received Yes Seen Specialist in Last 12 Months Yes Specialist Seen Oncologist,Orthopedist Comment PCP pre-op clearance 05/24/19 scanned to record Height 167.64 cm Weight 72.575 kg Body Mass Index (BMI) 25.8 Hearing Ability Hard of Hearing,Use of Hearing Aid Visual Impairment No Limitations Visual Assist Glasses Dentition Type Teeth, Natural Present Barriers to Learning None Other Aids No Comment Does not wear hearing aids regularly Hx Anesthesia Reactions No Hx Family Anesthesia Reaction No Hx Malignant Hyperthermia No Hx Blood Transfusions No Anesthesia Review Requested No alcohol intake current alcohol intake frequency 0-2 drinks per day Smoking Status Former smoker how long ago did patient quit smoking Quit Pain Present Pain Reported Musculoskeletal Symptoms Abnormal Gait,Back Pain, Difficulty Walking,Joint Pain, Muscle Weakness,Numbness, Radiating Pain into Limb History of Falling (Recent or History of No ) Patient is completely paralyzed or No completely immobile Mental Status Oriented to own ability Is patient on oxygen? No Does patient have WHALEN/SOB No Hx Sleep Apnea No Currently Taking a Beta Neymar Yes Can You Climb a Flight of Stairs Without Yes SOB Hx Chest Pain No Hx SOB No Hx Syncope or Dizziness No Cardiac Testing Yes: Carotid US 01/02/19 scanned to record Hx Pacemaker/ICD No Pacemaker Rep Required? No Diet Type At Home Regular dysphagia No Genitourinary Symptoms Change in Urinary Stream Bladder Pattern Nocturia,Retention Urinary Catheter Present No Hx Urinary Self Catheterization No Diabetes No Hx Drug Resistant Organism No Presence of External or Internal Medical Yes Devices Have you traveled outside the [facility] States in the last 30 days? Marital Status Lives With spouse Prior Living Arrangements House Number of Floors (Floors) One Floor Support System Spouse Does the Patient Have Assistance After Yes Surgery Patient Discharge Plan Description Return Home Comment Pt advised 1-2 night length of stay per surgeon Feels Safe in Current Environment Yes Been Physically Hurt or Threatened By a No Person in Current Environment Do you have thoughts of harming yourself None or others? Are you currently considering suicide? No Do you have a plan to hurt yourself or No Plan others? Do You Have Any Spiritual Beliefs That No May Affect Your HC Choices? Do You Have Any Cultural Practices That No May Affect Your HC Choices? Who Can We Speak to About Patient's Care Family, friends Identifying Code for Release of Patient Declines to issue Information Health Care Proxy/Next of Kin Dorene Griffin () Health Care Proxy Emergency Contact Name Dorene Griffin () Emergency Contact Advance Directives? Yes Advance Directives on File No Requested Patient Bring Advanced Yes Directives DOS Power of Clay Dry Press Helper Yes Power of Clay Dry Press Helper Name Dorene Griffin () Power of Clay Dry Press Helper PAC Instructions Durable medical equipment, Medications to take/avoid, Nasal antibiotic,No ETOH/ petroleum product on skin DOS, NPO,Pre-surgical wash,Sturdy shoes/comfortable clothes,Do not bring valuables and remove jewelry
--- NOTE | 2019-07-10 16:54 | OT.IP.EVAL ---
Current Diagnoses Other spondylosis with radiculopathy, lumbosacral region (07/09/19) Spinal stenosis, lumbar region without neurogenic claudication (07/09/19) Other specified postprocedural states (07/09/19) Surgery Performed Operation Date: 07/09/19 12:15 Actual Procedures p L5-S1 TLIF(Not Applicable) - Lydia Blair MD Past Medical History (Last Updated 06/26/19 @ 10:49 by Priyanka Chinchilla, RN) Arthritis (Acute) Mendoza's esophagus (Acute) BPH (benign prostatic hyperplasia) (Acute) CKD (chronic kidney disease), stage III (Acute) Color blind (Acute) DDD (degenerative disc disease) (Acute) Depression (Acute) Former smoker (Acute) GERD (gastroesophageal reflux disease) (Acute) Hemorrhoids (Acute) Herpes zoster (Acute) HLD (hyperlipidemia) (Acute) HTN (hypertension) (Acute) Hyperglycemia (Acute) Incomplete bladder emptying (Acute) Low back pain (Acute) 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 (Acute) Osteoarthritis (Acute) Spina bifida (Acute) TIA (transient ischemic attack) (Acute) Waldenstrom macroglobulinemia (Acute 05/24/19) Weakness of right lower extremity (Acute) Surgical History (Last Updated 06/26/19 @ 10:49 by Priyanka Chinchilla, DEANDRA) H/O vasectomy (Acute) History of Nancie fundoplication (Acute ~1999) Hx of appendectomy (Acute ~1999) Hx of arthroscopy of left knee (Acute) Hx of blepharoplasty (Acute) Hx of fusion of cervical spine (Acute 07/27/17) Hx of hemorrhoidectomy (Acute ~1965) Hx of laminectomy (Acute 04/25/17) Hx of repair of right rotator cuff (Acute ~2003) S/P epidural steroid injection (Acute) Occupational Therapy Inpatient Evaluation/Re-Eval M1 PT/OT-IP Prior Functional Status Start: 07/10/19 16:39 Freq: NEEDED Status: Active Protocol: Document 07/10/19 16:40 [facility] (Rec: 07/10/19 16:54 [facility] [id number]) Medical Review Prior Functional Status Medical History Reviewed Yes Communication able to make needs known Mobility and Gait pt stated that he is independent with all mobilities and ambulation without AD Activities of Daily Living and IADL's Pt states able to do all ADl's and IADl needs prior. Social History Household Members spouse Living Arrangements House Number of Stairs To Enter/Railing? 4 steps to enter with R rail ascending Home Environment Standard Height Toilet,Walk in Shower Home Equipment Front Wheel Walker,Grab Bars Near Toilet,Grab Bars In Shower Employment Status Retired M2 OT-IP Current Condition Start: 07/10/19 16:39 Freq: Status: Active Protocol: Document 07/10/19 16:40 [facility] (Rec: 07/10/19 16:54 [facility] [id number]) Occupational Therapy Current Condition Current Condition Evaluation Date 07/10/19 Treatment Diagnosis S/P L5-S1 TLIF Diagnosis Onset Date 07/10/19 Post Operative Precautions Lumbar Precautions Log Roll,No Twisting,Limit Bending,Lifting Restriction of 10 lbs,Gait Belt above Incisional Area Weight Bearing Status Weight Bearing Status Weight Bear as Tolerated M3 OT- IP Subjective and Pain Start: 07/10/19 16:39 Freq: Status: Active Protocol: Document 07/10/19 16:40 [facility] (Rec: 07/10/19 16:54 [facility] [id number]) OT- Subjective Occupational Therapy Visit Type Type Initial Evaluation Visit Start Time 15:10 Visit Stop Time 15:55 Total Visit Minutes 45 Occupational Therapy Visit Comments Patient Comments Pt finishing up with PT, agreed to work with OT for eval. Patient/Caregiver Goals To go home when stable. OT Pain Assessment Pain When Pain Assessed At Rest Pain Present Pain Present Denied Pain M4 OT- IP ADL's Start: 07/10/19 16:39 Freq: Status: Active Protocol: Document 07/10/19 16:40 [facility] (Rec: 07/10/19 16:54 [facility] [id number]) OT ADL-Grooming General Evaluation Grooming Ability Standby Assistance Areas Needing Assistance Retrieving/Set-up of Grooming Items Comments OT Grooming Comments SBA while standing at sink for grooming needs. OT ADL-Oral Care General Eval Oral Care Ability Independent OT ADL-Dressing General Eval Lower Body Dressing Ability Maximum Assistance Comments OT Dressing Comments Educated and tried use of sock aid and motorboat mechanic inboard/outboard for socks. OT ADL-Toileting Comments OT Toileting Comments Pt able to simulate having to wipe on the toilet as not having to go and able to safely lean to the side and reach underneath with good safety for back precautions. OT ADL-Bathing Comments OT Bathing Comments Recommended having a shower chair for showers. M5 OT- IP IADL's Start: 07/10/19 16:39 Freq: Status: Active Protocol: Document 07/10/19 16:40 [facility] (Rec: 07/10/19 16:54 [facility] [id number]) OT-Instrumental Activities of Daily Living Money Management Money Management Caregiver Provides Assistance M6 OT- IP Functional Cognition Start: 07/10/19 16:39 Freq: Status: Active Protocol: Document 07/10/19 16:40 [facility] (Rec: 07/10/19 16:54 [facility] [email or web address]) Cognitive Factors Limiting Selfcare Function Cognitive Ability Level of Alertness Alert Patient Orientation Name,Place,Situation Attention Span Ability Capable of Focused Attention, Capable of Sustained Attention Ability to Follow Commands Able to Follow One Step Commands Memory Description Short Term Impaired Safety Awareness Decreased Ability to Apply Precautions,Underestimates Need for Assistance Cognitive Comments Cognitive Assessment Comments Pt not able to recall al back precautions and needs initially. Pt able to follow simple commands. Pt states feel a bit groggy due to pain medications. 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 M7 OT- IP Mobility and Balance Start: 07/10/19 16:39 Freq: Status: Active Protocol: Document 07/10/19 16:40 [facility] (Rec: 07/10/19 16:54 [facility] [email or web address]) OT- Bed Mobility Assessment Sit to Supine Sit to Supine Assist Standby Assistance OT-Transfer Assessment Sit to and From Stand Sit to and from Stand Contact Guard Assistance Transfers Transfer Ability Contact Guard Assistance Technique Transfer Destination Bed,Chair,Toilet Transfer Technique Stand Step Pivot Devices Transfer Assistive Devices Gait Belt,Front Wheeled Walker Comments Mobility Comments Pt needing cues for safety to straighten legs out all the way before trying to grab the FWW. CGA for safey from sit to stand. OT- Gait Assessment Gait Gait Assistance Required: Contact Guard Assist OT- Balance Assessment Sitting Balance and Reactions Static Sitting Balance Ability Normal Dynamic Sitting Balance Ability Good Standing Balance and Reactions Static Standing Balance Ability Fair M8 OT- IP Objective Assessments Start: 07/10/19 16:39 Freq: Status: Active Protocol: Document 07/10/19 16:40 [facility] (Rec: 07/10/19 16:54 [facility] [email or web address]) OT Gross Range of Motion Upper Extremity Range of Motion Assessment Within Functional Limits OT Strength Comments Strength Comments WFL M9 OT- IP Assessment and Plan Start: 07/10/19 16:39 Freq: Status: Active Protocol: Document 07/10/19 16:40 [facility] (Rec: 07/10/19 16:54 [facility] [id number]) OT Summary Assessment and Plan Potential Rehabilitation Potential Good Analytic Complexity at Evaluation Low Summary OT Impairments Balance,Functional Cognition, Functional Mobility,Dressing, Toileting,Bathing,Toilet Transfers,Shower Transfers Progress Towards Goals Progressing Toward Goals Assessment Summary Pt low complexity and main barrier is steps and now having to use O2. Pending if caregiver training and getting pt off of O2 as pt dropped to 82% on 2L after walking to and from the toilet and needing several minutes to recover above 94% may need short rehab stay versus home with assist. Goals Grooming Goal Independent Dressing Goal Standby Assistance Toileting Goal Standby Assistance Bathing Goal Contact Guard Assistance Toilet Transfer Goal Standby Assistance Shower Transfer Goal Standby Assistance Patient/Caregiver Education Goal Demonstrate Post-Op Precautions,Caregiver Independent Assisting Patient Days to Meet Goals 5 Frequency of Treatment Frequency Of Treatment Once a Day Treatment Plan OT Treatment Plan ADL Training,Functional Cognition Training,Functional Mobility,Patient/Family Education,Discharge Planning Other Treatment Recommendations and Next LB dressing practice. Treatment Focus Discharge Recommendations OT Discharge Recommendations Home with Assistance,SNF Rehab Other Discharge Recommendations Most likely home with assist however pending if pt able to wean off O2 and caregiver training possibly short skilled rehab. Home Equipment Needs shower chair, motorboat mechanic inboard/outboard, sock aid
[2019-07-10] MEDS: ATENOLOL 25 MG TABLET PO (22:06)
[2019-07-10] MEDS: SENNOSIDES 8.6 MG TABLET 17.2 MG PO (22:08)
[2019-07-10] MEDS: FELODIPINE ER 2.5 MG TAB PO (22:10)
--- NOTE | 2019-07-10 23:40 | PC.NURSE ---
Evening note: Sreekanth Ox3 and situation. CMS intact, denies numbness to legs. Drsg to back CDI. After dinner, he stood at bedside & voided 325 ml clear yellow urine with no reported difficulty. VS are stable. Only ate 1/2 of meal, reports poor appetite. Refused HS snack. Left eye is red, swollen and watery tonight. He said he feels like something is in there. I couldn't see anything, after assessing I flushed his eye with saline. Later we applied hot washcloths to eye which he said provided great relief. Denies further needs/concerns tonight. Fall precautions in place & alarm active for safety.
[2019-07-11] VITALS (10 sets, daily range): BP systolic 126–141; BP diastolic 69–73; PULSE 67–75; RESP 14–18; TEMP 37.1–38.1; O2SAT 87–96
[2019-07-11] MEDS: HYDROMORPHONE 2 MG TABLET PO ×2 (02:34→06:38)
--- NOTE | 2019-07-11 05:21 | PC.NURSE ---
Pt VSS, Dilaudid PO 2mg given for 3/10 pain. Pt using 2 liters O2 this night to keep O2 sats above 90, O2 sats on 2liters 94%. Pt has SCD's applied bilaterally, CMS intact, IS encouraged. Pt up doing log roll, up to bathroom FWW 1 person assist. Call light within reach.
[2019-07-11] MEDS: DOCUSATE 100 MG CAPSULE PO ×2 (09:24→20:37)
[2019-07-11] MEDS: FLUoxetine 20 MG CAPSULE PO (09:24)
[2019-07-11] MEDS: PANTOPRAZOLE 20 MG TABLET PO ×2 (09:24→20:37)
[2019-07-11] MEDS: CHOLECALCIFEROL (VITAMIN D3) 1,000 UNIT TABLET 2000 UNIT PO (09:24)
[2019-07-11] MEDS: ATORVASTATIN 10 MG TABLET PO (09:24)
[2019-07-11] MEDS: MAGNESIUM HYDROXIDE 30 ML UDC PO (09:24)
[2019-07-11] MEDS: TERAZOSIN 5 MG CAPSULE PO ×2 (09:25→20:36)
--- NOTE | 2019-07-11 09:28 | PT.IPTN ---
Current Diagnoses Other spondylosis with radiculopathy, lumbosacral region (07/09/19) Spinal stenosis, lumbar region without neurogenic claudication (07/09/19) Other specified postprocedural states (07/09/19) Surgery Performed Operation Date: 07/09/19 12:15 Actual Procedures p L5-S1 TLIF(Not Applicable) - Lydia Blair MD Physical Therapy Treatment Note M2 PT-IP Current Condition Start: 07/10/19 12:04 Freq: NEEDED Status: Active Protocol: Document 07/10/19 09:30 AB (Rec: 07/10/19 12:17 AB [id number]) Physical Therapy Current Condition Current Condition Evaluation Date 07/10/19 Treatment Diagnosis s/p L5S1 fusion/lami; difficulty in walking Onset Date 07/09/19 Precautions Lumbar Precautions Log Roll,No Twisting,Limit Bending,Lifting Restriction of 10 lbs,Gait Belt above Incisional Area Other Precautions Falls M3 PT-IP Subjective Start: 07/10/19 12:04 Freq: NEEDED Status: Active Protocol: Document 07/11/19 08:32 LJ (Rec: 07/11/19 09:28 [id number]) Subjective Physical Therapy Visit Type Type Treatment Note Visit Start Time 08:32 Visit Stop Time 08:55 Total Visit Minutes 23 Physical Therapy Visit Comments Patient Comments pt agreeable to do PT Patient Goals to go home Therapy Pain Assessment Pain When Pain Assessed During Mobility Pain Present Pain Present Denied Pain M4 PT-IP Mobility and Gait Start: 07/10/19 12:04 Freq: NEEDED Status: Active Protocol: Document 07/11/19 08:32 LJ (Rec: 07/11/19 09:28 [id number]) PT-Bed Mobility Assessment Rolling Type of Rolling Log Rolling Level of Assist Standby Assistance Supine to Sit Supine to Sit Standby Assistance PT-Transfer Assessment Sit to and From Stand Sit to and from Stand Contact Guard Assistance, Minimal Assistance,1 Person Assistance,Use of Upper Extremities Equipment Transfer Assistive Device Gait Belt,Front Wheeled Walker Orthotic/Prosthetic Devices or Brace: No Transfers Transfer Destination Toilet Transfer Technique Stand Step Pivot Transfer Ability Level of Assist Standby Assistance Comments Mobility Comments Pt SBA with bed mobility. Com[facility] [employer] w/o difficulty or assistance. Pt moves slowly and carefully. Gait Assessment Gait Gait Assistance Required: Standby Assistance Distance (Feet) 250 Able to Maintain Weight Bearing Status Yes During Gait Assistive Devices Assistive Device Gait Belt,Front Wheeled Walker Gait Deviations General Gait Pattern Decreased Stride Length, Decreased Feet Clearance Factors Limiting Gait Function Factors Limiting Gait Function Decreased Activity Tolerance, Decreased Strength,Pain,Poor Balance Comments Gait Comments Pt ambulated to stairs, climbed stairs, ambulated down hallway another 150' with SBA . Pt moves slowly and reports no pain while walking. Pt recited precautions accurately . Stair Climbing Assessment Evaluation Level of Assist On Stairs Contact Guard Assistance Devices Stair Climbing Assistive Devices Right Railing Technique/Endurance Stair Climbing Direction Ascend and Descend Stair Climbing Technique Step to Step Number of Steps Climbed 3 Stair Climbing Set # Repetitions (reps) 1 Comments Stair Climbing Comments Pt step-to gait d/t bad knee . Pt safe on stairs. Stairs at home are shorter than stairs at hospital. M5 PT-IP Objective Assessments Start: 07/10/19 12:04 Freq: NEEDED Status: Active Protocol: Document 07/10/19 09:30 AB (Rec: 07/10/19 12:17 AB [id number]) Orientation Orientation/Cognition Level of Alertness Alert Orientation Name,Age,Birthday,Place, Situation Gross Range of Motion Lower Extremity ROM Assessment Within Functional Limits Strength Lower Extremity Strength Assessment Left Impaired Comments Strength Comments LLE : 3+/5 Coordination Assessment Gross Coordination Gross Coordination WNL Sensation Assessment Sensation Gross Sensation WNL Muscle Tone Muscle Tone WNL Yes M6 PT-IP Treatment Start: 07/10/19 12:04 Freq: NEEDED Status: Active Protocol: Document 07/10/19 14:54 AB (Rec: 07/10/19 17:46 AB [id number]) Physical Therapy Treatment Education Education Provided Precautions,Safety M7 PT-IP Assessment and Plan Start: 07/10/19 12:04 Freq: NEEDED Status: Active Protocol: Document 07/11/19 08:32 LJ (Rec: 07/11/19 09:28 LJ [id number]) PT Summary Assessment and Plan Potential Rehabilitation Potential Good Summary Impairments Pain,ROM,Strength,Balance,Gait ,Activity Tolerance Progress Towards Goals Progressing Toward Goals Assessment Summary Pt requiring SBA for bed mobility and transfers. Safe on stairs moving slowly with step to gait. Plan next treatment to do caregiver training. Goals Bed Mobility Goal Independent Transfer Goal Independent,Front Wheeled Walker Gait Goal Independent,Front Wheel Walker Gait Distance 200 Other Goals up/down 4 steps with R rail SBA Days to Meet Goals 5 Frequency of Treatment Frequency Of Treatment Twice a Day Treatment Plan Physical Therapy Treatment Plan Bed Mobility Training,Transfer Training,Gait Training, Therapeutic Exercise,Balance Retraining,Post Op Education, Discharge Planning,Hot or Cold Pack,Neuromuscular Re-ed, Coordination Retraining,Manual Therapy Recommendations To Nursing Amount of Assist Needed 1 Person Assist Discharge Recommendations PT Discharge Recommendations Home with Assistance Equipment Needed for Home Before FWW Discharge
--- NOTE | 2019-07-11 09:30 | PM.DS.1 ---
History of Present Illness History of Present Illness Date Patient Seen: 07/11/19 Time Patient Seen: 09:30 Chief complaint: [id number] Narrative: Patient has been having chronic back pain and worsening lumbar radiculopathy. Patient failed multiple conservative management with worsening pain weakness and numbness in her lower extremity. Patient has been having difficulty performing activity of daily living. After discussing risks benefits of treatment options, patient elected proceed with surgery. No acute events overnight. Patient complains of pain during urination (straight chathedx3 yesterday), denies fever, chills, urgency, flank pain, hematuria. Patient complains of itchy, painful left eye, started 1 week ago. Denies loss of vision. Discussed with patient about following up with PCP for eye. Denies nausea, vomiting, chest pain, shortness of breath, calf pain. Discharge Providers Provider Date of admission: 07/09/19 10:22 Primary care physician: Emely Hart MD Consults: 07/09/19 16:33 Consult to Occupational Therapy Evaluate & Treat Comment: Physician Instructions: Evaluate and treat Consult to Physical Therapy Evaluate & Treat Comment: Physician Instructions: Evaluate and Treat 07/09/19 18:06 Consult to Respiratory Therapy Evaluate & Treat Comment: Physician Instructions: Evaluate and treat Discharge provider: Jefferson Diop PA-C Summary Hospital Course Discharge Diagnosis: s/p TLIF Exam Vital Signs (past 8 hours): - 07/11/19 06:41 07/11/19 09:20 Temperature 98.8 F 99.4 F Pulse Rate 70 71 Respiratory Rate 16 14 Blood Pressure 129/73 129/73 Pulse Oximetry 92 Oxygen Delivery Method Nasal Cannula Oxygen Flow Rate 0 Objective Labs Result Diagrams: 07/10/19 05:45 Discharge Plan Discharge Plan Patient Disposition: Home Discharge comment: discharge home pending UA Discharge Med Rec/Prescriptions Prescriptions: New acetaminophen [Tylenol Extra Strength] 500 mg tablet 500 mg PO Q4H PRN (Reason: pain) Qty: 60 RF: 0 hydromorphone [Dilaudid] 2 mg tablet 2 mg PO Q4H PRN (Reason: pain) Qty: 40 RF: 0 Continued felodipine 2.5 MG tablet extended release 24 hr 2.5 mg PO BEDTIME Qty: 0 RF: 0 atenolol 25 MG tablet 25 mg PO BEDTIME Qty: 0 RF: 0 fluoxetine 20 MG tablet 20 mg PO QDAY Qty: 0 RF: 0 terazosin 5 MG capsule 5 mg PO BID Qty: 0 RF: 0 atorvastatin [Lipitor] 10 MG tablet 10 mg PO QAM Qty: 0 RF: 0 cholecalciferol (vitamin D3) [Vitamin D3] 2,000 unit Capsule 2,000 unit PO DAILY Qty: 0 RF: 0 omeprazole 20 MG capsule,delayed release(DR/EC) 20 mg PO BID Qty: 0 RF: 0 Discontinued aspirin 81 MG tablet,delayed release (DR/EC) 81 mg PO BEDTIME Qty: 0 RF: 0 acetaminophen [Tylenol Extra Strength] 500 mg Tablet 1,000 mg PO DAILY PRN (Reason: Pain) RF: 0 Follow up/Referrals: Lydia Blair MD [Physician] - Emely Hart MD [Primary Care Provider] - Provider Discharge Instructions Diet: Regular Activity: weight bearing as tolerated. follow TLIF precautions Cold/Heat Therapy: continue cold/heat therapy Skin/Wound/Dressing Care Report to your healthcare provider any signs of infection, such as:: chills, fever, increased pain, unusual drainage and unusual redness Dressing: keep dressing dry. if saturated contact office. Visit Report/Discharge Packet Instructions: DI for Heart Failure, DI for Transforaminal Lumbar Interbody Fusion Stand Alone Forms: Surgery Discharge Discharge Data Primary Care Provider: Emely Hart Quality VTE Deep Vein Thrombosis/Pulmonary Embolism Present on Admission: No
[2019-07-11 10:00] LABS: Appearance Urine UA CLEAR; Bilirubin Urine UA NEGATIVE (NEGATIVE); Color Urine UA YELLOW; Glucose Urine UA NEGATIVE (Negative); Ketones Urine UA NEGATIVE (NEGATIVE); Leukocyte Esterase Urine UA 1+ (NEGATIVE); Nitrite Urine UA NEGATIVE (Negative); Occult Blood Urine UA 2+ (Negative); Protein Urine UA TRACE (Negative); Urobilinogen Urine UA 0.2 E.U./dL (0.2)
[2019-07-11 10:10] LABS: Bacteria Urine None Seen
[2019-07-11 10:11] LABS: Culture Indicated Urine Specimen Cultured; RBC Urine 1-5/HPF (0-5/HPF); WBC Urine 5-10/HPF (0-5/HPF)
--- NOTE | 2019-07-11 10:39 | OT.IP.TRT ---
Current Diagnoses Other spondylosis with radiculopathy, lumbosacral region (07/09/19) Spinal stenosis, lumbar region without neurogenic claudication (07/09/19) Other specified postprocedural states (07/09/19) Surgery Performed Operation Date: 07/09/19 12:15 Actual Procedures p L5-S1 TLIF(Not Applicable) - Lydia Blair MD Occupational Therapy Treatment Note M2 OT-IP Current Condition Start: 07/10/19 16:39 Freq: Status: Active Protocol: Document 07/10/19 16:40 [facility] (Rec: 07/10/19 16:54 [facility] [email or web address]) Occupational Therapy Current Condition Current Condition Evaluation Date 07/10/19 Treatment Diagnosis S/P L5-S1 TLIF Diagnosis Onset Date 07/10/19 Post Operative Precautions Lumbar Precautions Log Roll,No Twisting,Limit Bending,Lifting Restriction of 10 lbs,Gait Belt above Incisional Area Weight Bearing Status Weight Bearing Status Weight Bear as Tolerated M3 OT- IP Subjective and Pain Start: 07/10/19 16:39 Freq: Status: Active Protocol: Document 07/11/19 10:21 [facility] (Rec: 07/11/19 10:39 [facility] [email or web address]) OT- Subjective Occupational Therapy Visit Type Type Treatment Note Visit Start Time 08:55 Visit Stop Time 10:00 Total Visit Minutes 65 Occupational Therapy Visit Comments Patient Comments Pt wanting to shower. Pt able to communicate to PA and nursing of having pain while urinating and also pain in his left eye. Patient/Caregiver Goals To go home. OT Pain Assessment Pain When Pain Assessed At Rest Pain Present Pain Present Pain Reported Location Back Intensity 3 Scale Used Numeric (1 - 10) M4 OT- IP ADL's Start: 07/10/19 16:39 Freq: Status: Active Protocol: Document 07/11/19 10:21 [facility] (Rec: 07/11/19 10:39 [facility] [email or web address]) OT ADL-Dressing General Eval Upper Body Dressing Ability Independent Lower Body Dressing Ability Standby Assistance Areas Needing Assistance Retrieving/Set-up of Clothing Assistive Devices Dressing Assistive Devices Long Handled Shoe Horn,Cd Reactor Operator ,Sock Aid Comments OT Dressing Comments Pt after re-education able to use LB dressing devices for brief,pants, socks , and shoes . Pt needing MAX A for use of sock aid. OT ADL-Toileting General Evaluation Toileting Ability Independent OT ADL-Bathing Bathing Type Bathing Type Shower General Evaluation Bathing Ability Minimal Assistance Areas Needing Assistance Retrieving/Setting Up Items, Wash/Dry Back Devices Bathing Equipment Hand Held Shower Sprayer, Shower Chair with Arms Comments OT Bathing Comments ANDI to wash back and CGA for balance while standing to wash pericare needs. M5 OT- IP IADL's Start: 07/10/19 16:39 Freq: Status: Active Protocol: Document 07/10/19 16:40 [facility] (Rec: 07/10/19 16:54 [facility] [email or web address]) OT-Instrumental Activities of Daily Living Money Management Money Management Caregiver Provides Assistance M6 OT- IP Functional Cognition Start: 07/10/19 16:39 Freq: Status: Active Protocol: Document 07/11/19 10:21 [facility] (Rec: 07/11/19 10:39 [facility] [email or web address]) Cognitive Factors Limiting Selfcare Function Cognitive Ability Level of Alertness Alert Patient Orientation Name,Place,Situation Attention Span Ability Capable of Focused Attention, Capable of Sustained Attention Ability to Follow Commands Able to Follow One Step Commands Memory Description Short Term Impaired Safety Awareness Decreased Ability to Apply Precautions,Underestimates Need for Assistance Problem Solving Ability Needs Assist to Identify Solutions Cognitive Comments Cognitive Assessment Comments Pt groggy from medications and not recalling all back precautions and forgot how to use socks aid after being taught yesterday. Pt a bit impulsive and needing MOD vc for safety from sit to stand. M7 OT- IP Mobility and Balance Start: 07/10/19 16:39 Freq: Status: Active Protocol: Document 07/11/19 10:21 [facility] (Rec: 07/11/19 10:39 [facility] [email or web address]) OT-Transfer Assessment Sit to and From Stand Sit to and from Stand Contact Guard Assistance Transfers Transfer Ability Contact Guard Assistance Technique Transfer Destination Bed,Chair,Shower Stall,Toilet Transfer Technique Stand Step Pivot Devices Transfer Assistive Devices Gait Belt,Front Wheeled Walker Comments Mobility Comments Still needing safety cure to straighten his legs out before reaching to the FWW. Pt on RA and initially 91% and when in the shower from 86-89 % but non-symptomatic and eventually after the shower at 90%. Pt cued to take deep breaths. M8 OT- IP Objective Assessments Start: 07/10/19 16:39 Freq: Status: Active Protocol: Document 07/10/19 16:40 [facility] (Rec: 07/10/19 16:54 [facility] [email or web address]) OT Gross Range of Motion Upper Extremity Range of Motion Assessment Within Functional Limits OT Strength Comments Strength Comments WFL M9 OT- IP Assessment and Plan Start: 07/10/19 16:39 Freq: Status: Active Protocol: Document 07/11/19 10:21 [facility] (Rec: 07/11/19 10:39 [facility] [email or web address]) OT Summary Assessment and Plan Potential Rehabilitation Potential Good Analytic Complexity at Evaluation Low Summary OT Impairments Balance,Functional Cognition, Functional Mobility,Dressing, Toileting,Bathing,Toilet Transfers,Shower Transfers Progress Towards Goals Progressing Toward Goals Assessment Summary Pt able to shower and states will have to assist for showering. Emphasized to pt to slow down, think things through, and have assist as needed. Goals Days to Meet Goals 2 Frequency of Treatment Frequency Of Treatment Once a Day Discharge Recommendations OT Discharge Recommendations Home with Assistance,Home Health Other Discharge Recommendations Pt may benefit from home health to check and assess safety in the home as pt states has low surfaces to get up from at the home. In addition O2 level fluctuates from 84% to 92% .
--- NOTE | 2019-07-11 11:22 | PC.NURSE ---
Addendum entered by Muna Gregory R.N. 07/11/19 13:34: - after lunch, pt felt urge to go, flomax and iv abx given earlier, assist x 1 person into br w/void of 450ml urine. Addendum entered by Muna Gregory R.N. 07/11/19 12:11: GI//RESP - enc freq use IS and pt demonstrated to 1500, discussed constipation with pt and given mom and mercedes this am, ortho PA will dc home with script for abx for uti. Original Note: AM NOTE - pt is awake, states back pain 1 on scale 0/10, up chair for breakfast, has had discomfort with voiding and after speaking to PA a urine sample was collected and sent to lab, also complaint l eye discomfort, sclera is reddened, has bedside moisturizing eye drop and applied warm compress to eye, OT in and pt showered, later states feels like he is unable to empty his bladder, bladder scan shows 450ml urine, spoke to PA and new order rec'd for flomax.
--- NOTE | 2019-07-11 11:33 | OT.IP.TRT ---
Current Diagnoses Other spondylosis with radiculopathy, lumbosacral region (07/09/19) Spinal stenosis, lumbar region without neurogenic claudication (07/09/19) Other specified postprocedural states (07/09/19) Surgery Performed Operation Date: 07/09/19 12:15 Actual Procedures p L5-S1 TLIF(Not Applicable) - Lydia Blair MD Occupational Therapy Treatment Note M2 OT-IP Current Condition Start: 07/10/19 16:39 Freq: Status: Active Protocol: Document 07/10/19 16:40 [facility] (Rec: 07/10/19 16:54 [facility] [email or web address]) Occupational Therapy Current Condition Current Condition Evaluation Date 07/10/19 Treatment Diagnosis S/P L5-S1 TLIF Diagnosis Onset Date 07/10/19 Post Operative Precautions Lumbar Precautions Log Roll,No Twisting,Limit Bending,Lifting Restriction of 10 lbs,Gait Belt above Incisional Area Weight Bearing Status Weight Bearing Status Weight Bear as Tolerated M3 OT- IP Subjective and Pain Start: 07/10/19 16:39 Freq: Status: Active Protocol: Document 07/11/19 11:25 [facility] (Rec: 07/11/19 11:33 [facility] [email or web address]) OT- Subjective Occupational Therapy Visit Type Type Treatment Note Visit Start Time 10:40 Visit Stop Time 11:20 Total Visit Minutes 40 Notes Went back to see pt as in to pick pt up. Occupational Therapy Visit Comments Patient Comments Pt now has UTI and will not be leaving today. Able to do caregiver training with pt's Patient/Caregiver Goals Pt wanting to go home. OT Pain Assessment Pain When Pain Assessed At Rest Pain Present Pain Present Denied Pain M5 OT- IP IADL's Start: 07/10/19 16:39 Freq: Status: Active Protocol: Document 07/10/19 16:40 [facility] (Rec: 07/10/19 16:54 [facility] [email or web address]) OT-Instrumental Activities of Daily Living Money Management Money Management Caregiver Provides Assistance M6 OT- IP Functional Cognition Start: 07/10/19 16:39 Freq: Status: Active Protocol: Document 07/11/19 11:25 [facility] (Rec: 07/11/19 11:33 [facility] [email or web address]) Cognitive Factors Limiting Selfcare Function Cognitive Ability Level of Alertness Alert Patient Orientation Name,Place,Situation Attention Span Ability Capable of Focused Attention, Capable of Sustained Attention Ability to Follow Commands Able to Follow One Step Commands Memory Description Short Term Impaired Safety Awareness Decreased Ability to Apply Precautions,Underestimates Need for Assistance Problem Solving Ability Needs Assist to Identify Solutions Cognitive Comments Cognitive Assessment Comments Pt having difficulty to recall safe way to get up and for log rolling and needing re- education and also having to train to be able to assist and know how to cue pt. M7 OT- IP Mobility and Balance Start: 07/10/19 16:39 Freq: Status: Active Protocol: Document 07/11/19 11:25 [facility] (Rec: 07/11/19 11:33 [facility] [email or web address]) OT-Transfer Assessment Sit to and From Stand Sit to and from Stand Contact Guard Assistance Transfers Transfer Ability Contact Guard Assistance Technique Transfer Destination Bed,Chair Devices Transfer Assistive Devices Gait Belt,Front Wheeled Walker Comments Mobility Comments Pt's able to go over training of how to stevenson/doff gait belt, cues to give pt to stand, and how to provide assist if needed. Pt 's will continue to benefit for more training to be able to assist pt safely especially coming to stand from lower surfaces. M8 OT- IP Objective Assessments Start: 07/10/19 16:39 Freq: Status: Active Protocol: Document 07/10/19 16:40 [facility] (Rec: 07/10/19 16:54 [facility] [email or web address]) OT Gross Range of Motion Upper Extremity Range of Motion Assessment Within Functional Limits OT Strength Comments Strength Comments WFL M9 OT- IP Assessment and Plan Start: 07/10/19 16:39 Freq: Status: Active Protocol: Document 07/11/19 11:25 [facility] (Rec: 07/11/19 11:33 [facility] [email or web address]) OT Summary Assessment and Plan Potential Rehabilitation Potential Good Analytic Complexity at Evaluation Low Summary OT Impairments Balance,Functional Cognition, Functional Mobility,Dressing, Toileting,Bathing,Toilet Transfers,Shower Transfers Progress Towards Goals Progressing Toward Goals Goals Days to Meet Goals 3 Frequency of Treatment Frequency Of Treatment Twice a Day Treatment Plan OT Treatment Plan ADL Training,Functional Cognition Training,Functional Mobility,Patient/Family Education,Discharge Planning Other Treatment Recommendations and Next caregiver training Treatment Focus Discharge Recommendations OT Discharge Recommendations Home with Assistance,Home Health Other Discharge Recommendations Pt now has UTI and not going home today. Pt will benefit from more caregiver training with this afternoon with PT and tomorrow if going home. Still recommend home health to double check safety of environment and continued training with pt's and pt in their home setting.
[2019-07-11] MEDS: TAMSULOSIN 0.4 MG CAPSULE PO (11:55)
[2019-07-11] MEDS: CEFTRIAXONE 2 GM/50 ML FROZ.PIGGY IV (12:44)
--- NOTE | 2019-07-11 15:38 | PT.IPTN ---
Current Diagnoses Other spondylosis with radiculopathy, lumbosacral region (07/09/19) Spinal stenosis, lumbar region without neurogenic claudication (07/09/19) Other specified postprocedural states (07/09/19) Surgery Performed Operation Date: 07/09/19 12:15 Actual Procedures p L5-S1 TLIF(Not Applicable) - Lydia Blair MD Physical Therapy Treatment Note M2 PT-IP Current Condition Start: 07/10/19 12:04 Freq: NEEDED Status: Active Protocol: Document 07/10/19 09:30 [facility] (Rec: 07/10/19 12:17 [facility] [id number]) Physical Therapy Current Condition Current Condition Evaluation Date 07/10/19 Treatment Diagnosis s/p L5S1 fusion/lami; difficulty in walking Onset Date 07/09/19 Precautions Lumbar Precautions Log Roll,No Twisting,Limit Bending,Lifting Restriction of 10 lbs,Gait Belt above Incisional Area Other Precautions Falls M3 PT-IP Subjective Start: 07/10/19 12:04 Freq: NEEDED Status: Active Protocol: Document 07/11/19 15:31 [facility] (Rec: 07/11/19 15:38 [facility] [email or web address]) Subjective Physical Therapy Visit Type Type Treatment Note Visit Start Time 15:05 Visit Stop Time 15:28 Total Visit Minutes 23 Number of PROGRAM PARAPROFESSIONAL Visits 1 Physical Therapy Visit Comments Patient Comments Pt willing to work with therapy. Therapy Pain Assessment Pain When Pain Assessed During Mobility Pain Present Pain Present Denied Pain Location Back Intensity 2 Scale Used Numeric (1 - 10) M4 PT-IP Mobility and Gait Start: 07/10/19 12:04 Freq: NEEDED Status: Active Protocol: Document 07/11/19 15:31 [facility] (Rec: 07/11/19 15:38 [facility] [email or web address]) PT-Bed Mobility Assessment Rolling Type of Rolling Log Rolling Level of Assist Standby Assistance Supine to Sit Supine to Sit Standby Assistance Sit to Supine Sit to Supine Standby Assistance Scooting Scooting to Edge of Bed Standby Assistance PT-Transfer Assessment Sit to and From Stand Sit to and from Stand Contact Guard Assistance,1 Person Assistance,Use of Upper Extremities Equipment Transfer Assistive Device Gait Belt,Front Wheeled Walker Orthotic/Prosthetic Devices or Brace: No Transfers Transfer Destination Toilet Transfer Technique Stand Step Pivot Transfer Ability Level of Assist Standby Assistance Gait Assessment Gait Gait Assistance Required: Standby Assistance Distance (Feet) 170 Able to Maintain Weight Bearing Status Yes During Gait Assistive Devices Assistive Device Gait Belt,Front Wheeled Walker Gait Deviations General Gait Pattern Decreased Stride Length, Decreased Feet Clearance Factors Limiting Gait Function Factors Limiting Gait Function Decreased Activity Tolerance, Decreased Strength,Pain,Poor Balance Stair Climbing Assessment Evaluation Level of Assist On Stairs Contact Guard Assistance Devices Stair Climbing Assistive Devices Right Railing Technique/Endurance Stair Climbing Direction Ascend and Descend Stair Climbing Technique Step to Step Number of Steps Climbed 3 Stair Climbing Set # Repetitions (reps) 1 M5 PT-IP Objective Assessments Start: 07/10/19 12:04 Freq: NEEDED Status: Active Protocol: Document 07/10/19 09:30 [facility] (Rec: 07/10/19 12:17 [facility] [id number]) Orientation Orientation/Cognition Level of Alertness Alert Orientation Name,Age,Birthday,Place, Situation Gross Range of Motion Lower Extremity ROM Assessment Within Functional Limits Strength Lower Extremity Strength Assessment Left Impaired Comments Strength Comments LLE : 3+/5 Coordination Assessment Gross Coordination Gross Coordination WNL Sensation Assessment Sensation Gross Sensation WNL Muscle Tone Muscle Tone WNL Yes M6 PT-IP Treatment Start: 07/10/19 12:04 Freq: NEEDED Status: Active Protocol: Document 07/11/19 15:31 [facility] (Rec: 07/11/19 15:38 [facility] [email or web address]) Physical Therapy Treatment Education Education Provided Precautions,Safety M7 PT-IP Assessment and Plan Start: 07/10/19 12:04 Freq: NEEDED Status: Active Protocol: Document 07/11/19 15:31 [facility] (Rec: 07/11/19 15:38 [facility] [email or web address]) PT Summary Assessment and Plan Summary Assessment Summary Pt is slow moving with bed mobility. He needed decrease in assistance. He was safe and stable with stair mobility. Pt safe for home D/C when medically stable. Frequency of Treatment Frequency Of Treatment Twice a Day Treatment Plan Physical Therapy Treatment Plan Bed Mobility Training,Transfer Training,Gait Training, Therapeutic Exercise,Balance Retraining,Post Op Education, Discharge Planning,Hot or Cold Pack,Neuromuscular Re-ed, Coordination Retraining,Manual Therapy Recommendations To Nursing Amount of Assist Needed 1 Person Assist Discharge Recommendations PT Discharge Recommendations Home with Assistance
[2019-07-11] MEDS: ACETAMINOPHEN 325 MG TABLET 650 MG PO (16:25)
--- NOTE | 2019-07-11 16:34 | PM.PNPO.1 ---
Subjective Subjective Date Patient Seen: 07/11/19 Time Patient Seen: 08:00 Interval history: Post op day 2, s/p TLIF with Dr. Blair. No acute events overnight. Patient was scheduled to be discharged today, but cancelled due to urinary retention. POD 1 patient was straight cathx3. Patient was able to void without assistance in PM, but this AM had urinary retention. Flomax was prescribed. Patient also complained of pain while urinating, denies fever, chills, flank pain, pelvic pain, blood in urine, urgency. UA ordered. Patient complains of itchy and painful left red eye. State it began one week ago, saline drops aren't helping, denies loss of vision. Patient is ambulating with physical therapy. Pain is well controlled with dilaudid and tylenol. Patient denies nausea, vomiting, chest pain, shortness of breath, numbness, tingling, calf pain. Exam Vital Signs (past 8 hours): - 07/11/19 09:20 07/11/19 10:08 07/11/19 14:00 Temperature 99.4 F 99.4 F Pulse Rate 71 75 Respiratory Rate 14 14 Blood Pressure 129/73 126/70 Pulse Oximetry 95 92 07/11/19 15:30 07/11/19 16:17 07/11/19 16:25 Temperature 100 F H 99.3 F 100 F H Pulse Rate 74 Respiratory Rate 18 Blood Pressure 141/71 H Pulse Oximetry 87 L Oxygen Delivery Method Room Air Oxygen Flow Rate 0 Narrative Exam Narrative: 83 year old male sitting comfortable in chair, in no apparent distress. A&Ox3. Dressing is CDI. Patient able to actively dorsiflex/plantar flex. Sensation to light touch grossly intact in lower extremities bilaterally. Dorsalis pedis 2+. Negative CVA tenderness. Left eye - inverted lower eye lid, watery discharge and injected conjunctiva. Objective Labs Result Diagrams: 07/10/19 05:45 Labs: Laboratory Results - last 24 hr 07/11/19 09:56 Urine Color Yellow Urine Appearance Clear Urine pH 6.0 Ur Specific [place] 1.010 Urine Protein Trace H Urine Glucose (UA) Negative Urine Ketones Negative Urine Occult Blood 2+ H Urine Nitrate Negative Urine Bilirubin Negative Urine Urobilinogen 0.2 Ur Leukocyte Esterase 1+ H Urine RBC 1-5/hpf Urine WBC 5-10/hpf H Urine Bacteria None seen Ur Culture Indicated? Specimen cultured Assessment & Plan Post-op Postoperative Procedures: Procedures Operation Date: 07/09/19 12:15 Actual Procedures Side Surgeon p L5-S1 TLIF Not Applicable Lydia Blair MD Postoperative status: doing well and urinary retention Postoperative plan narrative: Urinary retention, hx of BPH - straight cath PRN, flomax prescribed, will follow tomorrow Dysuria - UA shows WBC, Leuks ; IV ceftriaxone 2g qd, will send home with Levaquin 250 mg PO qd x3 days for empiric treatment. Will adjust treatment when sensitivities are available. Continue current pain management Continue ambulating with physical therapy Consider entropion vs. viral conjunctivitis - advised patient to follow up with PCP upon discharge Patient will likely be discharged home tomorrow pending resolution of urinary retention Time Spent With Patient Time with patient: 15-24 minutes Quality VTE Deep Vein Thrombosis/Pulmonary Embolism Present on Admission: No
--- NOTE | 2019-07-11 16:36 | PC.NURSE ---
Pt O2 sats in the high 80s. 2L O2 applied and O2 stat now @ 92%. WCTM. Pt having slight temperature, tylenol given. WCTM. Pt reports pain 10/05, tylenol given. WCTM. Pt alert and awake. No complaints. at bedside
[2019-07-11] MEDS: FELODIPINE ER 2.5 MG TAB PO (20:37)
[2019-07-11] MEDS: ATENOLOL 25 MG TABLET PO (20:37)
[2019-07-11] MEDS: SENNOSIDES 8.6 MG TABLET 17.2 MG PO (20:37)
--- NOTE | 2019-07-11 21:43 | PC.NURSE ---
Pt requesting sleep aid. TO Dr Azar give 25mg benedryl PRN for sleep
[2019-07-11] MEDS: diphenhydrAMINE 25 MG TABLET PO (22:34)
[2019-07-12] MEDS: HYDROMORPHONE 2 MG TABLET PO (03:24)
[2019-07-12 03:32] VITALS: BP 116/60; PULSE 71; RESP 17; TEMP 37.2; O2SAT 92
[2019-07-12 08:00] VITALS: BP 113/76; PULSE 69; RESP 18; TEMP 38.2; O2SAT 96
--- NOTE | 2019-07-12 08:18 | DI.RAD.S_ITS ---
PROCEDURE: XR CHEST 2V INDICATIONS: crackles, febrile TECHNIQUE: 2 views of the chest were acquired. COMPARISON: [facility], CR, XR LUMBAR SPINE 2-3V, 07/09/2019, 13:15. FINDINGS: Surgical changes and devices: Numerous upper abdominal clips are seen. There is partial visualization of lower cervical spine fixation hardware. Lungs and pleura: Lungs are clear. No pleural effusions or pneumothorax. Mediastinum: The cardiac contours are within normal limits. The aorta demonstrates calcification and tortuosity. Bones and chest wall: Age-appropriate bony degenerative changes are seen. No suspicious bony abnormalities. Soft tissues appear unremarkable. IMPRESSION: No focal infiltrates are seen. If there is clinical concern for a developing pulmonary process, a short-term followup chest series (with PA and lateral views, performed in deep inspiration) is suggested for further evaluation. Postoperative and degenerative changes are seen. Dictated by: Jimenez Ward M.D. on 07/12/2019 at 8:07 Approved by: Jimenez Ward M.D. on 07/12/2019 at 8:08
--- NOTE | 2019-07-12 08:27 | PM.PNPO.1 ---
Subjective Subjective Date Patient Seen: 07/12/19 Time Patient Seen: 08:27 Interval history: POD 3 s/p L5-S1 TLIF with Dr. Blair. Patient had a temperature a 100.8? this morning, and nurses concerned about crackles. 02 has been at 85% on room air. Requiring O2 at night. The patient has a suspicion for UTI and started on IV ceftriaxone until discharge. Plan for Levaquin for 3 days empirically until culture results. Patient has been on IV antibiotics during surgery so there may or may not be culture results due to this. He has no complaints of urinary pain this morning. He is very eager to go home. He does have pain and erythema of left eye going on for the past week. No relief with eyedrops. Exam Vital Signs (past 8 hours): - 07/12/19 03:32 Temperature 98.9 F Pulse Rate 71 Respiratory Rate 17 Blood Pressure 116/60 Pulse Oximetry 92 Oxygen Delivery Method Room Air Oxygen Flow Rate 2 Narrative Exam Narrative: Patient sitting up in bed in no acute distress. He is alert and oriented x3. He does have noticeable entropion, and erythema. No purulent discharge. Calves are soft, compressible, nontender bilaterally. Pulses are symmetrical. He is able to actively dorsiflex plantar flex. Objective Labs Result Diagrams: 07/10/19 05:45 Labs: Laboratory Results - last 24 hr 07/11/19 09:56 Urine Color Yellow Urine Appearance Clear Urine pH 6.0 Ur Specific [place] 1.010 Urine Protein Trace H Urine Glucose (UA) Negative Urine Ketones Negative Urine Occult Blood 2+ H Urine Nitrate Negative Urine Bilirubin Negative Urine Urobilinogen 0.2 Ur Leukocyte Esterase 1+ H Urine RBC 1-5/hpf Urine WBC 5-10/hpf H Urine Bacteria None seen Ur Culture Indicated? Specimen cultured Assessment & Plan Post-op Postoperative Procedures: Procedures Operation Date: 07/09/19 12:15 Actual Procedures Side Surgeon p L5-S1 TLIF Not Applicable Lydia Blair MD Patient either has viral conjunctivitis or entropion causing discomfort. Concern for pneumonia and getting chest x-ray this morning. Patient is febrile this morning, and we will get CBC with diff. Continue treatment of suspected UTI with IV ceftriaxone in the hospital, and Levaquin at home. Patient will need O2 on room air to be within acceptable limits while mobilizing with physical therapy today in order to be discharged. Quality VTE Deep Vein Thrombosis/Pulmonary Embolism Present on Admission: No
[2019-07-12 08:37] LABS: Add Manual Diff / Slide Review NO; Basophils Absolute Auto 0 /uL (0-100); Basophils Percent Auto 0.3 % (0-2); Eosinophils Absolute Auto 200 /uL (0-450); Eosinophils Percent Auto 1.8 % (2-4); Hematocrit 30.2 % (41-53); Hemoglobin 9.9 g/dL (13.5-17.5); Lymphocytes Absolute Auto 1600 /uL (1100-4500); Lymphocytes Percent Auto 12.7 % (25-40); Mean Corpuscular HGB Conc 32.9 % (30-36); Mean Corpuscular Hemoglobin 29.8 PG (26-34); Mean Corpuscular Volume 90.7 fL (80-100); Monocytes Absolute Auto 900 /uL (0-900); Neutrophils Absolute Auto 9800 /uL (1500-7000); Neutrophils Percent Auto 78.2 % (50-75); Platelet Count 177 X10^3/uL (150-400); Red Blood Cell Count 3.33 X10^6/uL (4.5-5.9); Red Cell Distribution Width 14.4 % (11.6-14.8); White Blood Cell Count 12.6 X10^3/uL (4.5-11.0)
[2019-07-12] MEDS: ATORVASTATIN 10 MG TABLET PO (09:33)
[2019-07-12] MEDS: DOCUSATE 100 MG CAPSULE PO (09:33)
[2019-07-12] MEDS: PANTOPRAZOLE 20 MG TABLET PO (09:33)
[2019-07-12] MEDS: TAMSULOSIN 0.4 MG CAPSULE PO (09:33)
[2019-07-12] MEDS: FLUoxetine 20 MG CAPSULE PO (09:33)
[2019-07-12] MEDS: TERAZOSIN 5 MG CAPSULE PO (09:33)
[2019-07-12] MEDS: ACETAMINOPHEN 325 MG TABLET 650 MG PO ×2 (09:34→14:48)
[2019-07-12] MEDS: CHOLECALCIFEROL (VITAMIN D3) 1,000 UNIT TABLET 2000 UNIT PO (09:34)
--- NOTE | 2019-07-12 09:58 | PT.IPTN ---
Current Diagnoses Other spondylosis with radiculopathy, lumbosacral region (07/09/19) Spinal stenosis, lumbar region without neurogenic claudication (07/09/19) Other specified postprocedural states (07/09/19) Surgery Performed Operation Date: 07/09/19 12:15 Actual Procedures p L5-S1 TLIF(Not Applicable) - Lydia Blair MD Physical Therapy Treatment Note M2 PT-IP Current Condition Start: 07/10/19 12:04 Freq: NEEDED Status: Active Protocol: Document 07/10/19 09:30 AB (Rec: 07/10/19 12:17 AB [id number]) Physical Therapy Current Condition Current Condition Evaluation Date 07/10/19 Treatment Diagnosis s/p L5S1 fusion/lami; difficulty in walking Onset Date 07/09/19 Precautions Lumbar Precautions Log Roll,No Twisting,Limit Bending,Lifting Restriction of 10 lbs,Gait Belt above Incisional Area Other Precautions Falls M3 PT-IP Subjective Start: 07/10/19 12:04 Freq: NEEDED Status: Active Protocol: Document 07/12/19 09:58 SP (Rec: 07/12/19 10:13 SP [id number]) Subjective Physical Therapy Visit Type Type Treatment Note Visit Start Time 09:40 Visit Stop Time 09:58 Total Visit Minutes 18 Number of STARS SPECIALIST Visits 2 Physical Therapy Visit Comments Patient Comments Pt willing to work with therapy. Therapy Pain Assessment Pain When Pain Assessed At Rest Pain Present Pain Present Pain Reported Location Back Intensity 1 Scale Used Numeric (1 - 10) Pain Management Techniques Re-positioning,Timing of Activity with Medications M4 PT-IP Mobility and Gait Start: 07/10/19 12:04 Freq: NEEDED Status: Active Protocol: Document 07/12/19 09:58 SP (Rec: 07/12/19 10:13 SP [id number]) PT-Transfer Assessment Sit to and From Stand Sit to and from Stand Contact Guard Assistance,1 Person Assistance,Use of Upper Extremities Equipment Transfer Assistive Device Gait Belt,Front Wheeled Walker Orthotic/Prosthetic Devices or Brace: No Transfers Transfer Destination Chair,Toilet Transfer Technique Stand Step Pivot Transfer Ability Level of Assist Standby Assistance Comments Mobility Comments Pt moves slowly, good safety hand placement and Fww positioning during transfers. Gait Assessment Gait Gait Assistance Required: Standby Assistance Distance (Feet) 212 Able to Maintain Weight Bearing Status Yes During Gait Assistive Devices Assistive Device Gait Belt,Front Wheeled Walker Gait Deviations General Gait Pattern Decreased Stride Length, Decreased Feet Clearance Factors Limiting Gait Function Factors Limiting Gait Function Decreased Activity Tolerance, Decreased Strength,Pain,Poor Balance Comments Gait Comments Pt able to ambulate 212' with FWW SBA. Pt moves slowly and reports little increased pain in LB 1.5/10 while walking. Pt recited precautions accurately. M5 PT-IP Objective Assessments Start: 07/10/19 12:04 Freq: NEEDED Status: Active Protocol: Document 07/10/19 09:30 AB (Rec: 07/10/19 12:17 AB [id number]) Orientation Orientation/Cognition Level of Alertness Alert Orientation Name,Age,Birthday,Place, Situation Gross Range of Motion Lower Extremity ROM Assessment Within Functional Limits Strength Lower Extremity Strength Assessment Left Impaired Comments Strength Comments LLE : 3+/5 Coordination Assessment Gross Coordination Gross Coordination WNL Sensation Assessment Sensation Gross Sensation WNL Muscle Tone Muscle Tone WNL Yes M6 PT-IP Treatment Start: 07/10/19 12:04 Freq: NEEDED Status: Active Protocol: Document 07/12/19 09:58 SP (Rec: 07/12/19 10:13 SP [id number]) Physical Therapy Treatment Other Treatments Other Treatment Performed Standing exercises: march, hip abd and flexion 2x10 with WB support BUE on FWW, stable. Cued slow pacing. M7 PT-IP Assessment and Plan Start: 07/10/19 12:04 Freq: NEEDED Status: Active Protocol: Document 07/12/19 09:58 SP (Rec: 07/12/19 10:13 SP [id number]) PT Summary Assessment and Plan Potential Rehabilitation Potential Good Summary Impairments Pain,ROM,Strength,Balance,Gait ,Activity Tolerance Progress Towards Goals Progressing Toward Goals Assessment Summary Pt requires CGA during Sit to stand and SBA during gait, moving slowly with step over step gait. Plan next treatment to do caregiver training. Call light placed next to him while seated in chair end of tx. Frequency of Treatment Frequency Of Treatment Twice a Day Treatment Plan Physical Therapy Treatment Plan Bed Mobility Training,Transfer Training,Gait Training, Therapeutic Exercise,Balance Retraining,Post Op Education, Discharge Planning,Hot or Cold Pack,Neuromuscular Re-ed, Coordination Retraining,Manual Therapy Recommendations To Nursing Amount of Assist Needed 1 Person Assist Discharge Recommendations PT Discharge Recommendations Home with Assistance Equipment Needed for Home Before fww Discharge
--- NOTE | 2019-07-12 10:21 | OT.IP.TRT ---
Current Diagnoses Other spondylosis with radiculopathy, lumbosacral region (07/09/19) Spinal stenosis, lumbar region without neurogenic claudication (07/09/19) Other specified postprocedural states (07/09/19) Surgery Performed Operation Date: 07/09/19 12:15 Actual Procedures p L5-S1 TLIF(Not Applicable) - Lydia Blair MD Occupational Therapy Treatment Note M2 OT-IP Current Condition Start: 07/10/19 16:39 Freq: Status: Active Protocol: Document 07/10/19 16:40 [facility] (Rec: 07/10/19 16:54 [facility] [id number]) Occupational Therapy Current Condition Current Condition Evaluation Date 07/10/19 Treatment Diagnosis S/P L5-S1 TLIF Diagnosis Onset Date 07/10/19 Post Operative Precautions Lumbar Precautions Log Roll,No Twisting,Limit Bending,Lifting Restriction of 10 lbs,Gait Belt above Incisional Area Weight Bearing Status Weight Bearing Status Weight Bear as Tolerated M3 OT- IP Subjective and Pain Start: 07/10/19 16:39 Freq: Status: Active Protocol: Document 07/12/19 10:09 [facility] (Rec: 07/12/19 10:21 [facility] [id number]) OT- Subjective Occupational Therapy Visit Type Type Treatment Note Visit Start Time 08:42 Visit Stop Time 09:07 Total Visit Minutes 25 Occupational Therapy Visit Comments Patient Comments Pt wanting to walk . Patient/Caregiver Goals Pt wanting to go home. M4 OT- IP ADL's Start: 07/10/19 16:39 Freq: Status: Active Protocol: Document 07/12/19 10:09 [facility] (Rec: 07/12/19 10:21 [facility] [id number]) OT ADL-Grooming General Evaluation Grooming Ability Independent Areas Needing Assistance Retrieving/Set-up of Grooming Items Comments OT Grooming Comments SBA while pt independent for all grooming needs while standing in front of the sink. OT ADL-Oral Care General Eval Oral Care Ability Independent M5 OT- IP IADL's Start: 07/10/19 16:39 Freq: Status: Active Protocol: Document 07/10/19 16:40 [facility] (Rec: 07/10/19 16:54 [facility] [id number]) OT-Instrumental Activities of Daily Living Money Management Money Management Caregiver Provides Assistance M6 OT- IP Functional Cognition Start: 07/10/19 16:39 Freq: Status: Active Protocol: Document 07/12/19 10:09 [facility] (Rec: 07/12/19 10:21 [facility] [id number]) Cognitive Factors Limiting Selfcare Function Cognitive Ability Level of Alertness Alert Patient Orientation Name,Place,Situation Attention Span Ability Capable of Focused Attention, Capable of Sustained Attention Ability to Follow Commands Able to Follow Multi-Step Commands Safety Awareness Decreased Ability to Apply Precautions,Underestimates Need for Assistance Problem Solving Ability Needs Assist to Identify Solutions Cognitive Comments Cognitive Assessment Comments Pt thinking better today and able to recall back precautions however still needing cues for safety awareness to have use of hands to push up from the armrests before standing. M7 OT- IP Mobility and Balance Start: 07/10/19 16:39 Freq: Status: Active Protocol: Document 07/12/19 10:09 [facility] (Rec: 07/12/19 10:21 [facility] [id number]) OT-Transfer Assessment Sit to and From Stand Sit to and from Stand Standby Assistance Transfers Transfer Ability Standby Assistance Technique Transfer Destination Bed,Chair Devices Transfer Assistive Devices Gait Belt,Front Wheeled Walker Comments Mobility Comments Pt able to walk in the hallway with cues to have him slightly turn his head to the left as currently not able to see out of his left eye due to erythema. As initially pt bumping into objects on the left side. OT- Gait Assessment Gait Gait Assistance Required: Standby Assistance,Contact Guard Assist Comments Gait Ability Comments Occasional CGA for balance during uneven surfaces otherwise SBA with FWW. Pt's O2 on RA 93% after walk around the nurse's station and doing grooming while standing. M8 OT- IP Objective Assessments Start: 07/10/19 16:39 Freq: Status: Active Protocol: Document 07/10/19 16:40 [facility] (Rec: 07/10/19 16:54 [facility] [id number]) OT Gross Range of Motion Upper Extremity Range of Motion Assessment Within Functional Limits OT Strength Comments Strength Comments WFL M9 OT- IP Assessment and Plan Start: 07/10/19 16:39 Freq: Status: Active Protocol: Document 07/12/19 10:09 [facility] (Rec: 07/12/19 10:21 [facility] [id number]) OT Summary Assessment and Plan Potential Rehabilitation Potential Good Analytic Complexity at Evaluation Low Summary OT Impairments Balance,Functional Cognition, Functional Mobility,Dressing, Toileting,Bathing,Toilet Transfers,Shower Transfers Progress Towards Goals Progressing Toward Goals Assessment Summary Pt doing well today and mainly awaiting to be medically cleared so able to go home. Goals Dressing Goal Standby Assistance Toileting Goal Standby Assistance Bathing Goal Standby Assistance Toilet Transfer Goal Standby Assistance Shower Transfer Goal Standby Assistance Patient/Caregiver Education Goal Demonstrate Energy Conservation and Pacing, Caregiver Independent Assisting Patient Days to Meet Goals 1 Frequency of Treatment Frequency Of Treatment Once a Day Treatment Plan OT Treatment Plan ADL Training,Functional Cognition Training,Functional Mobility,Patient/Family Education,Discharge Planning Discharge Recommendations OT Discharge Recommendations Home with Assistance
[2019-07-12 12:15] VITALS: BP 112/59; PULSE 60; RESP 16; TEMP 37; O2SAT 94
[2019-07-12 12:59] LABS: BUN Creatinine Ratio 16.7 (6-22); Blood Urea Nitrogen 25 mg/dL (9-20); Estimated Glomerular Filt Rate 44.9 mL/min (>60)
--- NOTE | 2019-07-12 13:23 | PC.NURSE ---
Addendum entered by Muna Gregory R.N. 07/12/19 15:03: DC - prior to dc, given 650mg po tylenol for back discomfort 3-4 on scale 0/10, reviewed the dc instructions with pt and spouse, all belongings, gathered, including glasses, cell phone, tablet and veneer gluer, clothing, tsf to [facility] and community center coordinator escorted to spouses's car. Addendum entered by Muna Gregory R.N. 07/12/19 13:27: PAIN - after lunch, pt declined tylenol or narcotic. Original Note: AM NOTE - pt is awake, states I don't feel good, did have temp 100.3 this am, back pain 1 on scale 0/10, given 650mg po tylenol, declines narcotic, enc freq use IS, desat to 86 % ra, 2L 97%, after freq use IS pt sat maintained 94%, coarse crackles, spoke to Myrtle LUIS and chest xr was completed, plan to dc home, Myrtle reviewed levaquin order with pharmacy, iv was not patent this am and dc'd, pt to start levaquin today and take for 5 days for UTI, per pt, no discomfort with voiding adequately today, 250mg based on creatinine/bun, up with phys therapy and ambul fww into hallway, to chair, cleared by PT for dc home.
--- NOTE | 2019-07-12 14:30 | PT-IP ANOTE ---
Pt was leaving to DC home upon arrival to tx in pm. Patient and family stated no questions or concerns.
--- NOTE | 2019-07-12 14:40 | CM.DPC ---
DCP Discharge Home Per MD, pt is medically stable to d/c home today. Per PT/OT, pt participated in therapy again today and recommending safe d/c home with assist today. No identified barriers to discharge. Plan: Patient to d/c home today via spouse POV and no SW needs at this time, please refer if indicated. DARLING Sanchez
--- NOTE | 2019-07-24 15:47 | P.DS_ITS ---
History of Present Illness History of Present Illness Date Patient Seen: 07/12/19 Time Patient Seen: 09:48 Chief complaint: [id number] Narrative: Patient has been having chronic back pain and worsening lumbar radiculopathy. Patient failed multiple conservative management with worsening pain weakness and numbness in her lower extremity. Patient has been having difficulty performing activity of daily living. After discussing risks benefits of treatment options, patient elected proceed with surgery. Discharge Providers Provider Date of admission: 07/09/19 10:22 Discharge Date: 07/12/19 Primary care physician: Emely Hart MD Consults: 07/09/19 16:33 Consult to Occupational Therapy Evaluate & Treat Comment: Physician Instructions: Evaluate and treat Consult to Physical Therapy Evaluate & Treat Comment: Physician Instructions: Evaluate and Treat 07/09/19 18:06 Consult to Respiratory Therapy Evaluate & Treat Comment: Physician Instructions: Evaluate and treat Discharge provider: Ratna Kearney PA-C Summary Hospital Course Discharge Diagnosis: Rotator cuff tear right Low-grade mature non-Hodgkin's B-cell lymphoma Hypertension Hyperlipidemia GERD Hospital Course: Sreekanth was admitted for a L5-S1 TLIF with Dr. Blair. Patient had acute urinary retention after surgery. He required multiple pittman catheterizations. Patient did become febrile during his stay, and complaints of dysuria. He was started on IV ceftriaxone for empiric coverage for UTI. He was discharged home on Levaquin. He was able to void at discharge. Patient was requiring O2 at night. Nursing had concerns of crackles and O2 sats were low at 85%. Chest X-ray negative for pneumonia. No complaints of shortness of breath. At time of discharge patient was 93% on room air and safe for discharge home. He does have pain and erythema of left eye going on for the past week prior to surgery. No relief with eyedrops. It is likely viral conjunctivitis, or entropion. Was eating and voiding without difficulty or assistance. He is mobilizing with physical therapy throughout his stay. His pain was well contro lled. Status at Discharge Functional status at discharge: uses cane/walker Exam Vital Signs (past 8 hours): Oxygen Delivery Method Room Air Oxygen Flow Rate 2 Narrative Exam Narrative: Patient sitting up in bed in no acute distress. Alert and orient x3. Calves are soft, compressible, nontender bilaterally. Pulses are symmetrical. He is able to actively dorsiflex and plantar flex. Sensation in tact light touch throughout bilateral lower extremities. Patient's pain well controlled this morning. He is eager to go home today. Objective Labs Result Diagrams: 07/12/19 08:30 07/12/19 08:30 Discharge Plan Discharge Plan Patient Disposition: Home Discharge Med Rec/Prescriptions Prescriptions: New acetaminophen [Tylenol Extra Strength] 500 mg tablet 500 mg PO Q4H PRN (Reason: pain) Qty: 60 RF: 0 hydromorphone [Dilaudid] 2 mg tablet 2 mg PO Q4H PRN (Reason: pain) Qty: 40 RF: 0 tamsulosin [Flomax] 0.4 mg capsule 0.4 mg PO DAILY Qty: 20 RF: 0 levofloxacin 250 mg tablet 250 mg PO DAILY Qty: 5 RF: 0 Continued felodipine 2.5 MG tablet extended release 24 hr 2.5 mg PO BEDTIME Qty: 0 RF: 0 atenolol 25 MG tablet 25 mg PO BEDTIME Qty: 0 RF: 0 fluoxetine 20 MG tablet 20 mg PO QDAY Qty: 0 RF: 0 terazosin 5 MG capsule 5 mg PO BID Qty: 0 RF: 0 atorvastatin [Lipitor] 10 MG tablet 10 mg PO QAM Qty: 0 RF: 0 cholecalciferol (vitamin D3) [Vitamin D3] 2,000 unit Capsule 2,000 unit PO DAILY Qty: 0 RF: 0 omeprazole 20 MG capsule,delayed release(DR/EC) 20 mg PO BID Qty: 0 RF: 0 Discontinued aspirin 81 MG tablet,delayed release (DR/EC) 81 mg PO BEDTIME Qty: 0 RF: 0 acetaminophen [Tylenol Extra Strength] 500 mg Tablet 1,000 mg PO DAILY PRN (Reason: Pain) RF: 0 Follow up/Referrals: Lydia Blair MD [Physician] - Emely Hart MD [Primary Care Provider] - (Follow-up regarding left eye, and UTI) Provider Discharge Instructions Diet: Regular Activity: weight bearing as tolerated. follow TLIF precautions Cold/Heat Therapy: continue cold/heat therapy Other treatments: Levaquin x 5 days Skin/Wound/Dressing Care Report to your healthcare provider any signs of infection, such as:: chills, fever, increased pain, unusual drainage and unusual redness Dressing: Cover site dressing prior to discharge. Keep dressing dry. if saturated contact office. Visit Report/Discharge Packet Instructions: DI for Urinary Tract Infection (UTI), Hydromorphone, Levofloxacin, Tamsulosin, DI for Transforaminal Lumbar Interbody Fusion Stand Alone Forms: Surgery Discharge Discharge Data Primary Care Provider: Emely Hart Discharges patient from system. Discharge Date/Time: 07/12/19 15:00 Quality VTE Deep Vein Thrombosis/Pulmonary Embolism Present on Admission: No
== END 2019-07-12 15:00 | disposition home or self-care (01) | DRG 454 ==
PROVIDERS: Physician Assistant; Physician Assistant Surgical; Admitting Provider Orthopaedic Surgery Orthopaedic Surgery of the Spine; PCP Internal Medicine Geriatric Medicine; Visit Provider Orthopaedic Surgery Orthopaedic Surgery of the Spine
PROC: 0SG30AJ Fusion of Lumbosacral Joint with Interbody Fusion Device, Posterior Approach, Anterior Column, Open Approach (ICD-10-PCS; principal; 2019-07-09 12:15)
DX: M48.07 Spinal stenosis, lumbosacral region (principal); C85.10 Unspecified B-cell lymphoma, unspecified site; N39.0 Urinary tract infection, site not specified; M47.27 Other spondylosis with radiculopathy, lumbosacral region; E78.5 Hyperlipidemia, unspecified; K21.9 Gastro-esophageal reflux disease without esophagitis; I12.9 Hypertensive chronic kidney disease with stage 1 through stage 4 chronic kidney disease, or unspecified chronic kidney disease; N18.9 Chronic kidney disease, unspecified; R33.9 Retention of urine, unspecified
CPT/HCPCS: 36415; 71046; 72100; 76000; 81003; 81015; 82565; 84520; 85014; 85018; 85025; 87086; 94762; 97116; 97161; 97165; 97530; 97535; C1776; C9290; J0131; J0330; J0690; J0696; J1100; J1170; J2405; J2704; J3010; J3410

== ENCOUNTER → 2020-10-13 12:13 | Outpatient (ROUT) | payer MEDICARE, OTHER, SELFPAY ==
[2019-07-09 16:33] VITALS: BMI 25.8
== END ==
PROVIDERS: PCP Internal Medicine Geriatric Medicine; Visit Provider Dermatology
DX: L08.9 Local infection of the skin and subcutaneous tissue, unspecified (principal)
CPT/HCPCS: 87070; 87077; 87147; 87186; 87205

== ENCOUNTER → 2025-07-02 11:20 | Outpatient (CLI) | payer MEDICARE, OTHER, SELFPAY ==
[2025-07-02 11:05] VITALS: BMI 25.8
--- NOTE | 2025-07-02 11:22 | DI.RAD.S_ITS ---
PROCEDURE: XR THORACIC SPINE 3V INDICATIONS: eval for migration of SCS leads TECHNIQUE: 3 views of the thoracic spine were acquired. COMPARISON: None. 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 Soft tissues: Spinal stimulator electrodes overlie the posterior epidural space at T8-9 with wires descending in the posterior epidural space to exit through L1-2 interlaminar region posteriorly. Battery pack appears grossly normal. No wire breakage or other complication IMPRESSION: Chronic findings as described. Dictated by: Yfn Montoya M.D. on 07/03/2025 at 10:34 Approved by: Yfn Montoya M.D. on 07/03/2025 at 10:36
== END ==
PROVIDERS: PCP Internal Medicine Geriatric Medicine; Referring Provider Physical Medicine & Rehabilitation; Visit Provider Physical Medicine & Rehabilitation
DX: M51.34 Other intervertebral disc degeneration, thoracic region (principal); M48.54XA Collapsed vertebra, not elsewhere classified, thoracic region, initial encounter for fracture; M54.9 Dorsalgia, unspecified; M54.50 Low back pain, unspecified; Z96.82 Presence of neurostimulator; G89.29 Other chronic pain; Z98.890 Other specified postprocedural states
CPT/HCPCS: 72072; 99214